=== PATIENT | male | born 1955 | race Caucasian/White ===

== ENCOUNTER 2020-10-10 15:23 | Inpatient (IN) ==
[2020-10-10] MEDS ORDERED: dilTIAZem HCl 5 MG/ML 5 ML VIAL IV ONE ×2 (15:45→15:48)
[2020-10-10] MEDS ORDERED: STAT IV Infusion **Titration per Protocol STA (15:47)
[2020-10-10] MEDS: dilTIAZem HCL 125 MG in DEXTROSE 5% 100 ML IV SCH (16:04)
[2020-10-10 16:09] LABS: Basophils # (auto) 0.02 K/uL (0-0.2); Basophils % (auto) 0.2 %; Eosinophils # (auto) 0.07 K/uL (0-0.5); Eosinophils % (auto) 0.8 %; Hematocrit (blood only) 40.7 % (42-52); Hemoglobin 13.1 g/dL (14.0-18.0); Immature Granulocytes # (auto) 0.02 K/uL (0.00-0.02); Immature Granulocytes % (auto) 0.2 %; Lymphocytes # (auto) 1.85 K/uL (1.2-3.4); Lymphocytes % (auto) 21.7 %; Mean Corpuscular Hemoglobin 30.3 pg (25-34); Mean Corpuscular Hgb Conc 32.2 g/dL (32-36); Monocytes % (auto) 9.4 %; Neutrophils # (auto) 5.77 K/uL (1.4-6.5); Neutrophils % (auto) 67.7 %; Platelet Count 198 K/uL (130-400); RDW Coefficient of Variation 16.4 % (11.5-14.5); RDW Standard Deviation 56.9 fL (36.4-46.3); Red Blood Count 4.33 M/uL (4.7-6.1); White Blood Count 8.53 K/uL (4.8-10.8)
[2020-10-10 16:24] LABS: BUN Creatinine Ratio 11.2 (10-20); Blood Urea Nitrogen 13 mg/dl (7-18); Calcium 8.8 mg/dl (8.5-10.1); Carbon Dioxide 25 mmol/L (21-32); Chloride 112 mmol/L (98-107); Est GFR (African American) 79.7 ml/min; Est GFR (Non-African American) 68.8 ml/min; Glucose 122 mg/dl (70-99); Lipase 168 U/L (73-393); Magnesium 2.1 mg/dl (1.8-2.4); Potassium 4.1 mmol/L (3.5-5.1); Sodium 144 mmol/L (136-145)
[2020-10-10 16:30] LABS: NT Pro B Type Natriuretic Pept 2429 pg/ml (0-900); Troponin I < 0.015 ng/ml (0-0.045)
[2020-10-10 16:34] LABS: INR 1.1 (0.9-1.1); Partial Thromboplastin Ratio 1.1; Prothrombin Time 10.8 Seconds (9.0-12.0)
--- NOTE | 2020-10-10 16:35 | XRay Report ---
XR chest 1V portable CLINICAL HISTORY: Chest Pain COMPARISON STUDY: No previous studies for comparison. FINDINGS: Old left clavicular fracture is noted. There is an old right-sided fracture. Moderate eleva tion of the right hemidiaphragm is present. Note is made of cardiomegaly. There is pulmonary vascular congestion. No pneumothorax or pleural effusion is identified. There is apparent right infrahilar op acity. IMPRESSION: 1. Cardiomegaly with pulmonary vascular congestion. 2. Moderate elevation of the right hemidiaphragm. Right basilar opacity which favors atelectasis alth ough consolidation could appear similar. Radiographic follow up is recommended. ACT 112: Negative or not required by law. Electronically signed by: Michelet Hinton M.D. 10/10/2020 4:33 PM
--- NOTE | 2020-10-10 16:39 | Emergency Department Note ---
History of Present Illness General Chief Complaint: Arrhythmia/Palpitations Stated Complaint: REFERRED BY ALEXANDER LU HEARTBE[facility] Time Seen by Provider: 10/10/20 15:38 History of Present Illness Provider Complaint: + "heart racing" and + palpitations Onset (ago): 1 day(s) Duration: + Constant Maximum Pain Intensity: 0 Current Pain Intensity: 0 Context: + occurred during exertion (While mowing grass) Arrhythmia history: + atrial fibrillation and + on anti-coagulants (Patient states he is not sure if he is on blood thinner.) Associated symptoms: + shortness of breath (Chronic per patient); no chest pain, no syncope, no nausea, no vomiting, no diaphoresis and no cough HPI narrative: Patient vaccinated against COVID-19. Patient states he does not know any of his home medications but he is states that his family member could bring in the list of home medications tomorrow. Patient states he was recently discharged from the hospital at [place]. He states after he started getting palpitations while mowing his lawn he went to his doctor who told him not to go to [facility] instead to come to [facility]. Past Med/Surg History Medical History (Updated 10/10/20 @ 16:43 by Abe Montes) Afib HLD (hyperlipidemia) HTN (hypertension) LBBB (left bundle branch block) Morbid obesity No pertinent family history Noncompliance LIZA (obstructive sleep apnea) Pulmonary hypertension Surgical History (Updated 10/10/20 @ 16:32 by Abe Montes) No pertinent past surgical history Social History Smoking Status: Never smoker Feels Safe at Home: Yes Review of Systems A total of 10 systems reviewed and were otherwise negative Physical Exam Vital Signs: Vital Signs - 24 hr 10/10/20 15:26 10/10/20 15:40 10/10/20 16:07 Temperature 36.7 C Temperature Source Temporal Artery Sc an Pulse Rate 99 H 173 H 105 H Pulse Rate from Sp O2 Sensor Pulse Rhythm Regular Irregular Pulse Strength Normal Respiratory Rate 21 28 H 28 H Respiratory Effort / Characteristics Non-Labored Sponta neous Spontaneous Access ory Muscle Use Lab ored Short of Kelley th SOB on Exertion Respiratory Depth Normal Normal Respiratory Patter n Regular Tachypnea Blood Pressure 150/72 H 128/94 Blood Pressure Vianney n 98 105 Pulse Oximetry 92 93 95 Oxygen Delivery Me thod Nasal Cannula Nasal Cannula Nasal Cannula Oxygen Flow Rate 2 3 2 Sepsis Recent Feve r Within 48 Hours No Sepsis New/Unexpla ined Change in Men jae Status No Sepsis Action Take n by Nursing No Action Required 10/10/20 16:15 Temperature Temperature Source Pulse Rate 109 H Pulse Rate from Sp O2 Sensor 101 H Pulse Rhythm Pulse Strength Respiratory Rate 22 Respiratory Effort / Characteristics Respiratory Depth Respiratory Patter n Blood Pressure 108/83 Blood Pressure Vianney n 91 Pulse Oximetry 95 Oxygen Delivery Me thod Oxygen Flow Rate Sepsis Recent Feve r Within 48 Hours Sepsis New/Unexpla ined Change in Men jae Status Sepsis Action Take n by Nursing Physical Exam: Physical Exam GENERAL: He is oriented to person, place, and time. He appears well-developed and well-nourished. He does not appear distressed. HENT: Exam performed. - Head: Normocephalic and atraumatic. - Right Ear: External ear normal. No mastoid tenderness. - Left Ear: External ear normal. No mastoid tenderness. - Mouth/Throat: The oropharynx is clear and moist. No trismus in the jaw. No dental abscesses or uvula swelling. No oropharyngeal exudate or tonsillar abscesses. EYES: Conjunctivae and EOM are normal. Pupils are equal, round, and reactive to light. Right eye exhibits no discharge. Left eye exhibits no discharge. No scleral icterus. NECK: Normal range of motion. Neck supple. No JVD present. No spinous process tenderness present. No carotid bruit present. No rigidity. No tracheal deviation and normal range of motion present. No Brudzinski's sign and no Kernig's sign noted. CV: Tachycardic rate, irregular rhythm, normal heart sounds and intact distal pulses. There is 2+ pitting edema of bilateral lower extremities. Palpable radial pulses bue. PULM/CHEST: Effort normal and breath sounds normal. No respiratory distress. No stridor. He has no wheezes. He has no rales. - Chest Wall: He exhibits no tenderness. ABD: The abdomen is soft and he is morbidly obese. Bowel sounds are normal. He has no distension. No mass is present. There is no tenderness. There is no rebound, no guarding, no Reilly's sign and no tenderness at McBurney's point. Rovsig negative. MUSC/SKEL: Normal range of motion. There is There is 2+ pitting edema of bilateral lower extremities. NEURO: He is alert and oriented to person, place, and time. He has normal strength. No cranial nerve deficit or sensory deficit. Coordination and gait normal. GCS eye subscore is 4. GCS verbal subscore is 5. GCS motor subscore is 6. Cerebellar tests wnl. SKIN: Skin is warm and dry. He is not diaphoretic. PSYCH: He has a normal mood and affect. Behavior is normal. Judgment and thought content normal. Course Course 1538: The patient was evaluated in room C11. A complete history and physical exam was performed Cardiac monitoring: An order was placed for continuous cardiac monitoring. The monitor shows a rate of 140-160 with atrial fibrillation rhythm Large-bore IV access was obtained and Cardizem 20 mg was pushed on the patient which improved the patient's ventricular rate. Patient be started on Cardizem drip. Patient states he does not know any of his home medications but states his family member could bring the medications tomorrow. He states he thinks he is on a blood thinner. Patient states his traffic counter the [facility] told him to come to this hospital. He states he was just released from [facility]. 1600: Vital signs stable on Cardizem drip. Earlene catering sales manager was able to access the [facility] record system via [employer]. Patient was admitted to the [facility] from September 30, 2020 to October 05, 2020. He is discharged with a diagnosis of acute on chronic heart failure and A. fib RVR. His torsemide was increased to 40 mg daily and his metoprolol was increased to 100 mg p.o. twice daily. He is on Eliquis. Patient was cardioverted to normal sinus rhythm September 09, 2020. His creatinine at baseline is 1.0. He wears 2 L of oxygen at all time. Patient is supposed to follow-up with for pacemaker and ablation. He is scheduled for biventricular placement placement on October 12, 2020, 2 days from now. Patient is also on amiodarone outpatient. Will cancel CTA at this time given the patient is on Eliquis. We will plan to admit to the hospital given his A. fib RVR and evaluation by cardiology. 1655: Vital signs stable on Cardizem drip. Labs show an elevated proBNP. Chest x-ray shows that the patient is fluid overloaded. Discussed the case with Irene Shetty PA-C who states to admit to Dr. Sosa. She states to start the patient on Lasix 40 mg IV push and she will evaluate the patient. Administered Medications Diltiazem HCl 125 mg/ Dextrose 125 mls @ 5 mls/hr IV .Q24H [facility]; Protocol Stop: 11/09/20 15:59 Last Admin: 10/10/20 16:04 Dose: 5 mg/hr, 5 mls/hr Documented by: [id number] Cosigned by: [id number] Discontinued Medications Diltiazem HCl (Diltiazem Hcl 5 Mg/Ml 5 Ml Vial) Confirm Administered Dose 25 mg IV .STK-MED ONE Stop: 10/10/20 15:46 Last Admin: 10/10/20 15:52 Dose: 20 mg Documented by: [id number] Cosigned by: [id number] Diltiazem HCl (Diltiazem Hcl 5 Mg/Ml 5 Ml Vial) Confirm Administered Dose 25 mg IV .STK-MED ONE Stop: 10/10/20 15:49 Last Admin: 10/10/20 16:46 Dose: Not Given Documented by: [id number] Medical Decision Making Laboratory Data Result diagrams: 10/10/20 15:53 10/10/20 15:53 Lab Results 10/10/20 10/10/20 10/10/20 Range/Units 15:53 15:53 15:53 WBC 8.53 (4.8-10.8) K/uL RBC 4.33 L (4.7-6.1) M/uL Hgb 13.1 L (14.0-18.0) g/dL Hct 40.7 L (42-52) % MCV 94.0 (80-100) fL MCH 30.3 (25-34) pg MCHC 32.2 (32-36) g/dL RDW Std Deviation 56.9 H (36.4-46.3) fL RDW Coeff of Martin 16.4 H (11.5-14.5) % Plt Count 198 (130-400) K/uL MPV 11.0 H (7.4-10.4) fL Immature Gran % (Auto) 0.2 % Neut % (Auto) 67.7 % Lymph % (Auto) 21.7 % [place] % (Auto) 9.4 % Eos % (Auto) 0.8 % Baso % (Auto) 0.2 % Neut # (Auto) 5.77 (1.4-6.5) K/uL Lymph # (Auto) 1.85 (1.2-3.4) K/uL [place] # (Auto) 0.80 H (0.11-0.59) K/uL Eos # (Auto) 0.07 (0-0.5) K/uL Baso # (Auto) 0.02 (0-0.2) K/uL Immature Gran # (Auto) 0.02 (0.00-0.02) K/uL PT 10.8 (9.0-12.0) Seconds INR 1.1 (0.9-1.1) APTT 29.0 (21.0-31.0) Seconds PTT Ratio 1.1 Sodium 144 (136-145) mmol/L Potassium 4.1 (3.5-5.1) mmol/L Chloride 112 H (98-107) mmol/L Carbon Dioxide 25 (21-32) mmol/L Anion Gap 7.0 (3-11) BUN 13 (7-18) mg/dl Creatinine 1.13 (0.6-1.4) mg/dl Est Cr Clr Drug Dosing Not Reportable Est GFR ( Amer) 79.7 ml/min Est GFR (Non-Af Amer) 68.8 ml/min BUN/Creatinine Ratio 11.2 (10-20) Glucose 122 H (70-99) mg/dl Calcium 8.8 (8.5-10.1) mg/dl Magnesium 2.1 (1.8-2.4) mg/dl Troponin I < 0.015 (0-0.045) ng/ml NT-Pro-B Natriuret Pep 2429 H (0-900) pg/ml Lipase 168 (73-393) U/L COVID-19 Eval Order 10/10/20 Range/Units 15:53 WBC (4.8-10.8) K/uL RBC (4.7-6.1) M/uL Hgb (14.0-18.0) g/dL Hct (42-52) % MCV (80-100) fL MCH (25-34) pg MCHC (32-36) g/dL RDW Std Deviation (36.4-46.3) fL RDW Coeff of Martin (11.5-14.5) % Plt Count (130-400) K/uL MPV (7.4-10.4) fL Immature Gran % (Auto) % Neut % (Auto) % Lymph % (Auto) % [place] % (Auto) % Eos % (Auto) % Baso % (Auto) % Neut # (Auto) (1.4-6.5) K/uL Lymph # (Auto) (1.2-3.4) K/uL [place] # (Auto) (0.11-0.59) K/uL Eos # (Auto) (0-0.5) K/uL Baso # (Auto) (0-0.2) K/uL Immature Gran # (Auto) (0.00-0.02) K/uL PT (9.0-12.0) Seconds INR (0.9-1.1) APTT (21.0-31.0) Seconds PTT Ratio Sodium (136-145) mmol/L Potassium (3.5-5.1) mmol/L Chloride (98-107) mmol/L Carbon Dioxide (21-32) mmol/L Anion Gap (3-11) BUN (7-18) mg/dl Creatinine (0.6-1.4) mg/dl Est Cr Clr Drug Dosing Est GFR ( Amer) ml/min Est GFR (Non-Af Amer) ml/min BUN/Creatinine Ratio (10-20) Glucose (70-99) mg/dl Calcium (8.5-10.1) mg/dl Magnesium (1.8-2.4) mg/dl Troponin I (0-0.045) ng/ml NT-Pro-B Natriuret Pep (0-900) pg/ml Lipase (73-393) U/L COVID-19 Eval Order Covid19 at [facility] Imaging Data Radiologist's Impression: Chest X-Ray 10/10/20 15:47 XR chest 1V portable CLINICAL HISTORY: Chest Pain COMPARISON STUDY: No previous studies for comparison. FINDINGS: Old left clavicular fracture is noted. There is an old right-sided fracture. Moderate elevation of the right hemidiaphragm is present. Note is made of cardiomegaly. There is pulmonary vascular congestion. No pneumothorax or pleural effusion is identified. There is apparent right infrahilar opacity. IMPRESSION: 1. Cardiomegaly with pulmonary vascular congestion. 2. Moderate elevation of the right hemidiaphragm. Right basilar opacity which favors atelectasis although consolidation could appear similar. Radiographic follow up is recommended. ACT 112: Negative or not required by law. Electronically signed by: Michelet Hinton M.D. 10/10/2020 4:33 PM ECG Data Additional Comments: EKG #1 at 1540: Atrial fibrillation with a rate of 141. QRS 146 QTC 533. Sgarnosa negative. Left bundle branch block present. EKG #2 at 1551 status post Cardizem 20 mg IV bolus: Atrial fibrillation with a rate of 117. QRS 162 QTC 532. Left bundle branch block present. Sgarnosa [facility] Narrative 1538: The patient was evaluated in room C11. A complete history and physical exam was performed Cardiac monitoring: An order was placed for continuous cardiac monitoring. The monitor shows a rate of 140-160 with atrial fibrillation rhythm Large-bore IV access was obtained and Cardizem 20 mg was pushed on the patient which improved the patient's ventricular rate. Patient be started on Cardizem drip. Patient states he does not know any of his home medications but states his family member could bring the medications tomorrow. He states he thinks he is on a blood thinner. Patient states his traffic counter the [facility] told him to come to this hospital. He states he was just released from [facility]. 1600: Vital signs stable on Cardizem drip. Earlene catering sales manager was able to access the [facility] record system via [employer]. Patient was admitted to the hospital at [facility] from September 30, 2020 to October 05, 2020. He is discharged with a diagnosis of acute on chronic heart failure and A. fib RVR. His torsemide was increased to 40 mg daily and his metoprolol was increased to 100 mg p.o. twice daily. He is on Eliquis. Patient was cardioverted to normal sinus rhythm September 09, 2020. His creatinine at baseline is 1.0. He wears 2 L of oxygen at all time. Patient is supposed to follow-up with for pacemaker and ablation. He is scheduled for biventricular placement placement on October 12, 2020, 2 days from now. Patient is also on amiodarone outpatient. Will cancel CTA at this time given the patient is on Eliquis. We will plan to admit to the hospital given his A. fib RVR and evaluation by cardiology. 1655: Vital signs stable on Cardizem drip. Labs show an elevated proBNP. Chest x-ray shows that the patient is fluid overloaded. Discussed the case with Irene Shetty PA-C who states to admit to Dr. Sosa. She states to start the patient on Lasix 40 mg IV push and she will evaluate the patient. Impression & Plan Atrial fibrillation with RVR, CHF (congestive heart failure) Critical Care Time Critical Care Time: Yes Total Critical Care Time: 77 I have personally spent greater than 77 minutes of critical care time in the direct management of this patient. This includes bedside care, interpretation of diagnostic studies, and testing, discussion with consultants, patient, and family members, and other required patient management activities. This 77 minutes is in excess of all separately billable procedures. Discharge Plan Visit Data Chief Complaint: Arrhythmia/Palpitations Stated Complaint: REFERRED BY ALEXANDER LU HEARTBEAT ED Provider: Abe Montes Discharge Problem: Atrial fibrillation with RVR, CHF (congestive heart failure) Patient Disposition: Admitted As Inpatient Forms Stand Alone Forms: [facility] Referrals Referrals: PCP,NO [Primary Care Provider] - Discharge Problem: CHF (congestive heart failure) Qualifiers: Heart failure type: unspecified Heart failure chronicity: unspecified Qualified Code(s): I50.9 - Heart failure, unspecified
[2020-10-10] MEDS ORDERED: FUROSEMIDE 40 MG/4 ML VIAL IV STA (16:54)
--- NOTE | 2020-10-10 17:00 | History & Physical Report ---
Date of Service October 10, 2020 Assessment & Plan (1) Atrial fibrillation with RVR: This is a 64-year-old male with PMH of CHF, atrial fibrillation on Eliquis, type 2 diabetes, chronic respiratory failure with hypoxia and hypercapnia on 2 L nasal cannula oxygen, asthma, sleep apnea, hypertension and other medical problems listed below who was sent over from [facility] cardiology for A. fib with RVR and decompensated heart failure. Multiple admissions at [facility] for A. fib with RVR Home regimen includes amiodarone and recently increased Toprol 100 mg twice daily Due for AV jeannie ablation with biventricular ICD implant later this week with Dr. Stewart Directed to come to [facility] for admission for improved rate control, diuresis prior to procedure HR initially 170s, now 96 Diltiazem bolus and drip initiated in ED- continued on the floor Continue to monitor closely Cardiology consulted (2) Acute decompensated heart failure: Recurrent admissions for decompensated heart failure Most recent TTE from 09/13/2020 with EF of 30 with diffuse hypokinesis. Septal motion is abnormal consistent with LBBB. Moderate pulmonary hypertension is present Torsemide increased during previous hospital admission to 40 mg daily - holding currently Given 40mg IV Lasix in ED, valdes catheter placed. Strict I&Os Plan for Lasix 40mg BID17 Cardiology consulted (3) HTN (hypertension): Continue Toprol, lisinopril with hold parameters (4) HLD (hyperlipidemia): Continue statin (5) LIZA (obstructive sleep apnea): Bipap HS (6) LBBB (left bundle branch block): Chronic (7) Noncompliance: History of non-compliance with medications DVT Ppx: Eliquis Code status: FULL PCP: Raghu Dispo: Admitted to PCU. Patient seen in collaboration with Dr. Sosa. Please see addendum. (8) Acute systolic heart failure: History of Present Illness Chief Complaint: Sent from [facility] cardiology Primary Care Provider: NO PCP This is a 64-year-old male with PMH of CHF, atrial fibrillation on Eliquis, chronic respiratory failure with hypoxia and hypercapnia on 2 L nasal cannula oxygen, asthma, sleep apnea, hypertension and other medical problems listed below who was sent over from [facility] cardiology for A. fib with RVR and decompensated heart failure. Patient was recently admitted at [facility] from 09/30-10/05 for acute on chronic heart failure and A. fib with RVR. Had torsemide increased to 40 mg daily and Toprol increased to 100 mg twice daily. Was cardioverted to normal sinus rhythm on September 09. Is due for AV jeannie ablation with biventricular ICD implant later this week with Dr. Stewart. In clinic follow-up today, patient noted to be in A. fib with RVR as well as a 10 pound weight gain since last seen. Had been mowing the lawn earlier that day and noticed some palpitations. Otherwise feels that he is at his baseline. Denies chest pain, SOB, orthopnea. States he has been taking medications as prescribed but is unable to name them. Fills his medication box with help of sister and "takes what ever is in there". History of noncompliance. Denies any fever, chills, headache, lightheadedness, nausea, vomiting, abdominal pain, dysuria, diarrhea or constipation. Allergies Allergy/AdvReac Type Severity Reaction Status Date / Time codeine Allergy Hives Unverified 10/10/20 17:00 TEA Allergy Anaphylaxis Uncoded 10/10/20 17:01 TIDE LAUNDRY DETERGENT Allergy Rash Uncoded 10/10/20 17:02 Home Medications Medication Instructions Recorded Confirmed Type albuterol sulfate 1 inh INHALATION Q6H PRN 10/10/20 10/10/20 History amiodarone 200 mg PO DAILY 10/10/20 10/10/20 History apixaban [Eliquis] 5 mg PO BID 10/10/20 10/10/20 History aspirin 81 mg PO DAILY 10/10/20 10/10/20 History atorvastatin 40 mg PO DAILY 10/10/20 10/10/20 History cyanocobalamin (vitamin B-12) 500 mcg PO DAILY 10/10/20 10/10/20 History famotidine 40 mg PO DAILY 10/10/20 10/10/20 History lisinopril 2.5 mg PO DAILY 10/10/20 10/10/20 History metoprolol succinate 100 mg PO BID 10/10/20 10/10/20 History omeprazole 20 mg PO BID 10/10/20 10/10/20 History potassium chloride [Klor-Con] 20 meq PO DAILY 10/10/20 10/10/20 History torsemide 40 mg PO DAILY 10/10/20 10/10/20 History umeclidinium [Incruse Ellipta] 1 inh INHALATION DAILY 10/10/20 10/10/20 History Past Med/Surg History Medical History (Updated 10/10/20 @ 23:34 by Mayra Sosa, DO) Afib Diabetes mellitus, type II HLD (hyperlipidemia) HTN (hypertension) LBBB (left bundle branch block) Morbid obesity No pertinent family history Noncompliance LIZA (obstructive sleep apnea) Pulmonary hypertension Surgical History No pertinent past surgical history Family History Other Hypertension Social History Smoking Status: Never smoker Do You Dip or Chew Tobacco: Yes; Hx Alcohol Use: Yes Hx Substance Use: No Preferred Language: Liberian Communication Ability: Effective Beliefs That Will Affect Care: None Current Living Situation: Family Other Information That Helps Us Care for You: No Feels Safe at Home: Yes Safety Concerns: Feels Safe At This Time Assistive Devices: Oxygen - Continuous Review of Systems Review of Systems: At least ten systems reviewed and negative except as noted in the HPI. Physical Exam Physical Exam: General Appearance: WD/WN, vitals as above, NAD, sitting up in bed, conversational dyspnea Head: normocephalic, atraumatic Eyes: normal inspection, PERRL, conjunctivae normal, anicteric sclerae ENT: external ear and nose normal, oropharynx normal Neck: normal visual inspection, trachea midline, no thyromegaly Respiratory: increased respiratory effort, lungs clear to auscultation, no wheeze, rales, rhonchi. No accessory muscle use Cardiovascular: irregular rate & rhythm, no murmur appreciated, normal peripheral pulses, 2+ BLE edema. Vessels: + JVD Chest: normal inspection of chest Abdomen/GI: normal bowel sounds, soft, nontender, no hepatosplenomegaly Extremities/Musculoskeletal: no cyanosis or clubbing, extremities motor strength 5/5 Neurologic: PERRL, EOMI, accommodation nl, no face palsy, no dysarthria, CN's II-XI intact bilaterally and moves all extremities Psychiatric: A+Ox3, euthymic affect Skin: no rashes, normal color, warm/dry Results & Data Results & Data ([facility]) Vital Signs (Past 12 Hours) Vital Signs Temp Pulse Resp BP Pulse Ox 10/10/20 16:15 109 H 22 108/83 95 10/10/20 16:07 105 H 28 H 128/94 95 10/10/20 15:40 173 H 28 H 93 10/10/20 15:26 36.7 C 99 H 21 150/72 H 92 Laboratory Results Short CBC 10/10/20 Range/Units 15:53 WBC 8.53 (4.8-10.8) K/uL Hgb 13.1 L (14.0-18.0) g/dL Hct 40.7 L (42-52) % Plt Count 198 (130-400) K/uL BMP 10/10/20 15:53 Sodium 144 Potassium 4.1 Chloride 112 H Carbon Dioxide 25 BUN 13 Creatinine 1.13 Glucose 122 H Calcium 8.8 Cardiac Enzymes 10/10/20 Range/Units 15:53 Troponin I < 0.015 (0-0.045) ng/ml Diagnostic Findings Chest X-Ray 10/10/20 15:47 XR chest 1V portable CLINICAL HISTORY: Chest Pain COMPARISON STUDY: No previous studies for comparison. FINDINGS: Old left clavicular fracture is noted. There is an old right-sided fracture. Moderate elevation of the right hemidiaphragm is present. Note is made of cardiomegaly. There is pulmonary vascular congestion. No pneumothorax or pleural effusion is identified. There is apparent right infrahilar opacity. IMPRESSION: 1. Cardiomegaly with pulmonary vascular congestion. 2. Moderate elevation of the right hemidiaphragm. Right basilar opacity which favors atelectasis although consolidation could appear similar. Radiographic follow up is recommended. ACT 112: Negative or not required by law. Electronically signed by: Michelet Hinton M.D. 10/10/2020 4:33 PM ECG Rhythm: atrial fibrillation Findings: + LBBB Supervising Physician Co-Signing Physician Notes I have seen and examined the patient and have discussed the case with the provider above. I agree with the assessment and plan as stated. 64 yo M with recent hospitalization for heart failure presents with fluid overload and atrial fibrillation with rapid ventricular response. He reports mowing his yard today for approximately 2 to 3 hours with a push mower. He has 2 acres of land. He appears somewhat dehydrated but is not able to answer if he feels any weight gain. Denies shortness of breath or chest pain. Pulmonary vascular congestion noted on chest x-ray. Weight gain noted in clinic. Continue with plan as above including diuresis with Lasix and monitoring of strict I's and O's, daily standing weights and low-salt diet. Cardiology consulted for further management. Holding Toprol while patient is on diltiazem and continuing home amiodarone and digoxin. Physical exam reveals an morbidly obese 64-year-old man in no acute distress who has no conversational dyspnea or increased work of breathing. He is mentating clearly. Heart exam reveals irregular rhythm with a regular rate. S1 and S2 are heard without evidence of murmurs. No zehra pitting edema on extremities. Abdomen protuberant and it is unclear if swelling is present. Abdomen is soft and nondistended and no guarding is present. So far he is put out over 1 L in response to 40 mg of Lasix IV this evening. DO Ian
[2020-10-10] MEDS ORDERED: ACETAMINOPHEN 325 MG TAB PO PRN (19:53)
[2020-10-10] MEDS ORDERED: ONDANSETRON INJ 2 MG/ML 2 ML VIAL IV PRN (19:53)
[2020-10-10] MEDS ORDERED: POLYETHYLENE (MIRALAX) 17 GM PACK PO PRN (19:53)
[2020-10-10] MEDS ORDERED: PNEUMOCOCCAL POLYSACCHARIDES 25 MCG/0.5 ML VIAL/SYR IM ONE (20:08)
[2020-10-10] MEDS ORDERED: ALBUTEROL HFA 8 GM INHALER INH PRN (22:17)
[2020-10-10] MEDS: APIXABAN 5 MG TABLET PO SCH (23:32)
[2020-10-11 07:07] LABS: Hematocrit (blood only) 40.3 % (42-52); Hemoglobin 12.6 g/dL (14.0-18.0); Mean Corpuscular Hemoglobin 29.8 pg (25-34); Mean Corpuscular Hgb Conc 31.3 g/dL (32-36); Mean Corpuscular Volume 95.3 fL (80-100); Mean Platelet Volume 10.9 fL (7.4-10.4); Platelet Count 184 K/uL (130-400); RDW Coefficient of Variation 16.6 % (11.5-14.5); Red Blood Count 4.23 M/uL (4.7-6.1); White Blood Count 6.44 K/uL (4.8-10.8)
[2020-10-11 07:45] LABS: BUN Creatinine Ratio 11.2 (10-20); Calcium 8.6 mg/dl (8.5-10.1); Creatinine Clr Calc Pharmacy 114.1 ml/min; Est GFR (African American) 80.6 ml/min; Est GFR (Non-African American) 69.5 ml/min; Potassium 3.7 mmol/L (3.5-5.1)
[2020-10-11] MEDS: PANTOprazole 40 MG TAB PO SCH ×2 (08:37→20:48)
[2020-10-11] MEDS: ATORVASTATIN 40 MG TAB PO SCH (08:37)
[2020-10-11] MEDS: lisinopril 2.5 MG TAB PO SCH (08:37)
[2020-10-11] MEDS: AMIODARONE 200 MG TAB PO SCH (08:37)
[2020-10-11] MEDS: FAMOTIDINE 40 MG TABLET PO SCH (08:37)
[2020-10-11] MEDS: CYANOCOBALAMIN 500 MCG TABLET (VITAMIN B-12) PO SCH (08:37)
[2020-10-11] MEDS: ASPIRIN 81 MG ECTAB PO SCH (08:37)
[2020-10-11] MEDS: POTASSIUM CHLORIDE PWD 20 MEQ PACK PO SCH (08:38)
[2020-10-11] MEDS: APIXABAN 5 MG TABLET PO SCH (08:38)
[2020-10-11] MEDS: UMECLIDINIUM BROMIDE 62.5MCG/BLISTER 7 PUFFS/INHALER INH SCH (08:38)
[2020-10-11] MEDS: FUROSEMIDE 40 MG in SYRINGE 0 ML IV SCH ×2 (08:38→17:19)
--- NOTE | 2020-10-11 08:45 | Cardiology Consultation ---
Date of Consultation October 11, 2020 Assessment & Plan (1) Atrial fibrillation with RVR: (2) Acute decompensated heart failure: (3) LBBB (left bundle branch block): The patient is resting comfortably. He had a good diuresis overnight. His Eliquis has been stopped in anticipation of his upcoming procedures. Otherwise he is doing well. History of Present Illness Attending Physician: Andres Hawkins MD History of Present Illness This is a 64-year-old male patient with a history as outlined below. He is scheduled to have an ablation and pacemaker insertion later this week. He was admitted with volume overload and rapid atrial fibrillation. He will be diuresed during this admission and have better control of his atrial fibrillation. He has no current complaints. Past medical history: 1. Persistent atrial fibrillation with a rapid ventricular response failing amiodarone for rhythm management. Anticoagulated with Eliquis 2. 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 Status post cardioversion September 15, 2020 restore normal sinus rhythm but back in atrial fibrillation several days later 3. Chronic left bundle-branch block 4. Multiple recent admissions to [facility] for decompensated congestive systolic congestive heart and recurrent atrial fibrillation with rapid ventricular response. 5. Longstanding history of noncompliance 6. Morbid obesity 7. Obstructive sleep apnea with CPAP noncompliance 8. Pulmonary hypertension 9. Dyslipidemia Allergies Allergy/AdvReac Type Severity Reaction Status Date / Time codeine Allergy Hives Unverified 10/10/20 17:00 TEA Allergy Anaphylaxis Uncoded 10/10/20 17:01 TIDE LAUNDRY DETERGENT Allergy Rash Uncoded 10/10/20 17:02 Home Medications Medication Instructions Recorded Confirmed Type albuterol sulfate 1 inh INHALATION Q6H PRN 10/10/20 10/10/20 History amiodarone 200 mg PO DAILY 10/10/20 10/10/20 History apixaban [Eliquis] 5 mg PO BID 10/10/20 10/10/20 History aspirin 81 mg PO DAILY 10/10/20 10/10/20 History atorvastatin 40 mg PO DAILY 10/10/20 10/10/20 History cyanocobalamin (vitamin B-12) 500 mcg PO DAILY 10/10/20 10/10/20 History famotidine 40 mg PO DAILY 10/10/20 10/10/20 History lisinopril 2.5 mg PO DAILY 10/10/20 10/10/20 History metoprolol succinate 100 mg PO BID 10/10/20 10/10/20 History omeprazole 20 mg PO BID 10/10/20 10/10/20 History potassium chloride [Klor-Con] 20 meq PO DAILY 10/10/20 10/10/20 History torsemide 40 mg PO DAILY 10/10/20 10/10/20 History umeclidinium [Incruse Ellipta] 1 inh INHALATION DAILY 10/10/20 10/10/20 History Patient History Medical History Afib Diabetes mellitus, type II HLD (hyperlipidemia) HTN (hypertension) LBBB (left bundle branch block) Morbid obesity No pertinent family history Noncompliance LIZA (obstructive sleep apnea) Pulmonary hypertension Surgical History No pertinent past surgical history Family History Other Hypertension Social History Smoking Status: Never smoker Do You Dip or Chew Tobacco: Yes; Hx Alcohol Use: Yes Hx Substance Use: No Preferred Language: Kazakh Communication Ability: Effective Beliefs That Will Affect Care: None Current Living Situation: Family Other Information That Helps Us Care for You: No Feels Safe at Home: Yes Safety Concerns: Feels Safe At This Time Assistive Devices: CPAP Review of Systems Review of Systems: All systems reviewed & are unremarkable except as noted in HPI & below Nothing additional to add. Physical Exam Physical Exam: General: no acute distress and stated age Head: normocephalic, no masses, lesions, tenderness or abnormalities Eyes: conjunctiva are pink and non-injected, sclera clear Neck: supple, no adenopathy, no bruits, normal jugular venous pulse, no hepatojugular reflux Chest: normal shape and normal respiratory effort Lungs: clear to auscultation and percussion Cardiac Exam: - irregular rate & rhythm, no murmurs gallops or rubs - normal S1, normal S2 Pulses: 2(+) throughout Abdomen: abdomen soft, non-tender, no abnormal masses and no hepatosplenomegaly Musculoskeletal: no gait disturbance, no joint inflammation, no deforming arthritis Extremities: no edema and no cyanosis Neuro: grossly normal exam Results & Data ([facility]) Vital Signs (Past 12 Hours) Vital Signs Temp Pulse Pulse Resp BP Pulse Ox 10/11/20 08:12 36.5 C 112 H 18 121/75 90 10/11/20 05:00 36.9 C 93 H 18 121/72 10/11/20 03:30 85 12 93 10/11/20 00:48 101 H 10/10/20 23:28 36.7 C 84 18 116/63 95 10/10/20 23:08 92 H 21 94 Laboratory Results Laboratory Results - last 24 hr 10/10/20 10/10/20 10/10/20 15:53 15:53 15:53 WBC 8.53 RBC 4.33 L Hgb 13.1 L POC Hgb Hct 40.7 L POC Hct MCV 94.0 MCH 30.3 MCHC 32.2 RDW Std Deviation 56.9 H RDW Coeff of Martin 16.4 H Plt Count 198 MPV 11.0 H Immature Gran % (Auto) 0.2 Neut % (Auto) 67.7 Lymph % (Auto) 21.7 Fountain % (Auto) 9.4 Eos % (Auto) 0.8 Baso % (Auto) 0.2 Neut # (Auto) 5.77 Lymph # (Auto) 1.85 Fountain # (Auto) 0.80 H Eos # (Auto) 0.07 Baso # (Auto) 0.02 Immature Gran # (Auto) 0.02 PT 10.8 INR 1.1 APTT 29.0 PTT Ratio 1.1 POC Sodium Sodium 144 POC Potassium Potassium 4.1 POC Chloride Chloride 112 H Carbon Dioxide 25 POC Total CO2 Anion Gap 7.0 POC Anion Gap POC BUN BUN 13 Creatinine 1.13 POC Creatinine Est Cr Clr Drug Dosing Not Reportable Est GFR ( Amer) 79.7 Est GFR (Non-Af Amer) 68.8 BUN/Creatinine Ratio 11.2 Glucose 122 H POC Glucose (other) Calcium 8.8 POC Ioniz Calcium Shreya Magnesium 2.1 Troponin I < 0.015 NT-Pro-B Natriuret Pep 2429 H Lipase 168 COVID-19 Eval Order SARS-CoV-2 (PCR) Hepatitis C Ab Screen 10/10/20 10/10/20 10/10/20 15:53 15:53 15:53 WBC RBC Hgb POC Hgb Hct POC Hct MCV MCH MCHC RDW Std Deviation RDW Coeff of Martin Plt Count MPV Immature Gran % (Auto) Neut % (Auto) Lymph % (Auto) Fountain % (Auto) Eos % (Auto) Baso % (Auto) Neut # (Auto) Lymph # (Auto) Fountain # (Auto) Eos # (Auto) Baso # (Auto) Immature Gran # (Auto) PT INR APTT PTT Ratio POC Sodium Sodium POC Potassium Potassium POC Chloride Chloride Carbon Dioxide POC Total CO2 Anion Gap POC Anion Gap POC BUN BUN Creatinine POC Creatinine Est Cr Clr Drug Dosing Est GFR ( Amer) Est GFR (Non-Af Amer) BUN/Creatinine Ratio Glucose POC Glucose (other) Calcium POC Ioniz Calcium Shreya Magnesium Troponin I NT-Pro-B Natriuret Pep Lipase COVID-19 Eval Order Covid19 at [facility] SARS-CoV-2 (PCR) NEGATIVE Hepatitis C Ab Screen Neg 10/10/20 10/11/20 10/11/20 16:02 06:48 06:48 WBC 6.44 RBC 4.23 L Hgb 12.6 L POC Hgb 13.6 L Hct 40.3 L POC Hct 40 L MCV 95.3 MCH 29.8 MCHC 31.3 L RDW Std Deviation 58.0 H RDW Coeff of Martin 16.6 H Plt Count 184 MPV 10.9 H Immature Gran % (Auto) Neut % (Auto) Lymph % (Auto) Fountain % (Auto) Eos % (Auto) Baso % (Auto) Neut # (Auto) Lymph # (Auto) Fountain # (Auto) Eos # (Auto) Baso # (Auto) Immature Gran # (Auto) PT INR APTT PTT Ratio POC Sodium 145 H Sodium 142 POC Potassium 4.1 Potassium 3.7 POC Chloride 106 Chloride 106 Carbon Dioxide 31 POC Total CO2 24 Anion Gap 5.0 POC Anion Gap 20.0 POC BUN 13 BUN 13 Creatinine 1.12 POC Creatinine 1.2 Est Cr Clr Drug Dosing 114.1 Est GFR ( Amer) 80.6 Est GFR (Non-Af Amer) 69.5 BUN/Creatinine Ratio 11.2 Glucose 106 H POC Glucose (other) 127 H Calcium 8.6 POC Ioniz Calcium Shreya 1.22 Magnesium Troponin I NT-Pro-B Natriuret Pep Lipase COVID-19 Eval Order SARS-CoV-2 (PCR) Hepatitis C Ab Screen Medications Administered Current Inpatient Medications Acetaminophen (Acetaminophen 325 Mg Tab) 650 mg PO Q4H PRN PRN Reason: Pain or Fever Stop: 11/09/20 19:52 Albuterol (Albuterol Hfa 8 Gm Inhaler) 1 puffs INH Q6R PRN PRN Reason: Shortness Of Breath Stop: 11/09/20 22:16 Amiodarone HCl (Amiodarone 200 Mg Tab) 200 mg PO DAILY [facility] Stop: 11/10/20 08:59 Last Admin: 10/11/20 08:37 Dose: 200 mg Documented by: Aspirin (Aspirin 81 Mg Ectab) 81 mg PO DAILY [facility] Stop: 11/10/20 08:59 Last Admin: 10/11/20 08:37 Dose: 81 mg Documented by: Atorvastatin Calcium (Atorvastatin 40 Mg Tab) 40 mg PO DAILY [facility] Stop: 11/10/20 08:59 Last Admin: 10/11/20 08:37 Dose: 40 mg Documented by: Cyanocobalamin (Cyanocobalamin 500 Mcg Tablet (Vitamin B-12)) 500 mcg PO DAILY [facility] Stop: 11/10/20 08:59 Last Admin: 10/11/20 08:37 Dose: 500 mcg Documented by: Famotidine (Famotidine 40 Mg Tablet) 40 mg PO DAILY [facility] Stop: 11/10/20 08:59 Last Admin: 10/11/20 08:37 Dose: 40 mg Documented by: Fluticasone/Vilanterol (Fluticasone/Vilanterol 200/25mcg 14 Puffs/Inhaler) 1 puffs INH DAILY [facility] Stop: 11/10/20 08:59 Last Admin: 10/11/20 10:06 Dose: 1 puffs Documented by: Diltiazem HCl 125 mg/ Dextrose 125 mls @ 5 mls/hr IV .Q24H [facility]; Protocol Stop: 11/09/20 15:59 Last Admin: 10/11/20 11:05 Dose: 10 mg/hr, 10 mls/hr Documented by: Furosemide 40 mg/ Syringe 4 mls @ 4 mls/min IV BID17 [facility] Stop: 11/10/20 08:59 Last Admin: 06/08/21 08:38 Dose: 4 mls/min Documented by: Lisinopril (Lisinopril 2.5 Mg Tab) 2.5 mg PO DAILY [facility] Stop: 11/10/20 08:59 Last Admin: 10/11/20 08:37 Dose: 2.5 mg Documented by: Metoprolol Succinate (Metoprolol Succ 50mg Ext Rel Tab) 100 mg PO BID [facility] Stop: 11/10/20 08:59 Ondansetron HCl (Ondansetron Inj 2 Mg/Ml 2 Ml Vial) 4 mg IV Q6H PRN PRN Reason: Nausea Stop: 11/09/20 19:52 Pantoprazole Sodium (Pantoprazole 40 Mg Tab) 40 mg PO BID [facility]; Protocol Stop: 11/10/20 08:59 Last Admin: 10/11/20 08:37 Dose: 40 mg Documented by: Polyethylene Glycol (Polyethylene (Miralax) 17 Gm Pack) 17 gm PO DAILY PRN PRN Reason: Constipation Stop: 11/09/20 19:52 Potassium Chloride (Potassium Chloride Pwd 20 Meq Pack) 20 meq PO DAILY [facility] Stop: 11/10/20 08:59 Last Admin: 10/11/20 08:38 Dose: 20 meq Documented by: Umeclidinium [place] (Umeclidinium [place] 62.5mcg/Blister 7 Puffs/Inhaler) 1 puffs INH DAILY [facility] Stop: 11/10/20 08:59 Last Admin: 10/11/20 08:38 Dose: 1 puffs Documented by:
[2020-10-11] MEDS ORDERED: DIGOXIN 0.125 MG TAB PO SCH (09:00)
[2020-10-11] MEDS ORDERED: METOPROLOL SUCC 50MG EXT REL TAB PO SCH (09:00)
[2020-10-11] MEDS: FLUTICASONE/VILANTEROL 200/25MCG 14 PUFFS/INHALER INH SCH (10:06)
[2020-10-11 10:19] LABS: iSTAT Potassium 4.1 mmol/L (3.3-5.0)
[2020-10-11 10:20] LABS: iSTAT Creatinine 1.2 mg/dl (0.6-1.3); iSTAT Hemoglobin 13.6 g/dl (14.0-18.0); iSTAT Ionized Calcium 1.22 mmol/l (1.12-1.32)
[2020-10-11] MEDS: dilTIAZem HCL 125 MG in DEXTROSE 5% 100 ML IV SCH (11:05)
--- NOTE | 2020-10-11 13:39 | Hospitalist Progress Note ---
Date of Service October 11, 2020 Assessment & Plan (1) Atrial fibrillation with RVR: This is a 64-year-old male with PMH of CHF, atrial fibrillation on Eliquis, type 2 diabetes, chronic respiratory failure with hypoxia and hypercapnia on 2 L nasal cannula oxygen, asthma, sleep apnea, hypertension and other medical problems listed below who was sent over from [facility] cardiology for A. fib with RVR and decompensated heart failure. Multiple admissions at [facility] for A. fib with RVR Home regimen includes amiodarone and recently increased Toprol 100 mg twice daily Due for AV jeannie ablation with biventricular ICD implant later this week with Dr. Stewart Directed to come to [facility] for admission for improved rate control, diuresis prior to procedure HR initially 170s, now 96 Diltiazem bolus and drip initiated in ED- continued on the floor Continue to monitor closely Cardiology consulted -appreciate input Remains medically stable with controlled heart rate around 90s (2) Acute decompensated heart failure: Recurrent admissions for decompensated heart failure Most recent TTE from 09/13/2020 with EF of 30 with diffuse hypokinesis. Septal motion is abnormal consistent with LBBB. Moderate pulmonary hypertension is present Torsemide increased during previous hospital admission to 40 mg daily - holding currently Given 40mg IV Lasix in ED, valdes catheter placed. Strict I&Os Plan for Lasix 40mg BID17 No symptoms of fluid overload We will continue current medications (3) HTN (hypertension): Continue Toprol, lisinopril with hold parameters Blood pressure is controlled (4) HLD (hyperlipidemia): Continue statin (5) LIZA (obstructive sleep apnea): Bipap HS (6) LBBB (left bundle branch block): Chronic (7) Noncompliance: History of non-compliance with medications DVT Ppx: Eliquis Code status: FULL PCP: Raghu Dispo: Admitted to PCU. . (8) Acute systolic heart failure: Admission and Anticipated Discharge Date Admission Date: October 10, 2020 Subjective 10/11/2020 The patient was seen and examined in telemetry unit He was transferred from [facility] artist consultant for possible ICD placement He has been stable denies any symptoms this morning Review of Systems Review of Systems: All systems reviewed and are unremarkable except as noted below Cardiovascular: no chest pain and no palpitations Physical Exam Physical Exam: Lying in bed comfortably Constitutional: well developed, well nourished and + obese; not ill appearing Eyes: PERRL, conjunctivae normal, anicteric sclerae ENMT: external ear and nose normal, oropharynx normal Neck: trachea midline, no thyromegaly Respiratory: no respiratory distress Auscultation: lungs clear to auscultation bilaterally and + diminished lung sounds Cardiovascular: Rate/Rhythm: regular rate and regular rhythm Heart Sounds: no murmur Extremities: + edema (1-2+ edema bilaterally and seems to be chronic) Gastrointestinal (Abdomen): Inspection/Auscultation: + abdomen distended and normal bowel sounds Percussion/Palpation: abdomen soft; abdomen nontender Musculoskeletal: No acute arthritis in any joint Neurologic: Alert, awake and oriented x3 Lymphatic: no cervical or axillary lymphadenopathy Results & Data Results & Data ([facility]) Vital Signs (Past 12 Hours) Vital Signs Temp Pulse Pulse Resp BP Pulse Ox 10/11/20 11:09 37.2 C 96 H 18 136/81 91 10/11/20 08:12 36.5 C 112 H 18 121/75 90 10/11/20 08:00 90 10/11/20 05:00 36.9 C 93 H 18 121/72 10/11/20 03:30 85 12 93 Laboratory Results Short CBC 10/10/20 10/11/20 Range/Units 15:53 06:48 WBC 8.53 6.44 (4.8-10.8) K/uL Hgb 13.1 L 12.6 L (14.0-18.0) g/dL Hct 40.7 L 40.3 L (42-52) % Plt Count 198 184 (130-400) K/uL [facility] 10/10/20 10/11/20 15:53 06:48 Sodium 144 142 Potassium 4.1 3.7 Chloride 112 H 106 Carbon Dioxide 25 31 BUN 13 13 Creatinine 1.13 1.12 Glucose 122 H 106 H Calcium 8.8 8.6 Cardiac Enzymes 10/10/20 Range/Units 15:53 Troponin I < 0.015 (0-0.045) ng/ml Medications Administered Current Inpatient Medications Acetaminophen (Acetaminophen 325 Mg Tab) 650 mg PO Q4H PRN PRN Reason: Pain or Fever Stop: 11/09/20 19:52 Albuterol (Albuterol Hfa 8 Gm Inhaler) 1 puffs INH Q6R PRN PRN Reason: Shortness Of Breath Stop: 11/09/20 22:16 Amiodarone HCl (Amiodarone 200 Mg Tab) 200 mg PO DAILY [facility] Stop: 11/10/20 08:59 Last Admin: 10/11/20 08:37 Dose: 200 mg Documented by: Aspirin (Aspirin 81 Mg Ectab) 81 mg PO DAILY [facility] Stop: 11/10/20 08:59 Last Admin: 10/11/20 08:37 Dose: 81 mg Documented by: Atorvastatin Calcium (Atorvastatin 40 Mg Tab) 40 mg PO DAILY [facility] Stop: 11/10/20 08:59 Last Admin: 10/11/20 08:37 Dose: 40 mg Documented by: Cyanocobalamin (Cyanocobalamin 500 Mcg Tablet (Vitamin B-12)) 500 mcg PO DAILY [facility] Stop: 11/10/20 08:59 Last Admin: 10/11/20 08:37 Dose: 500 mcg Documented by: Famotidine (Famotidine 40 Mg Tablet) 40 mg PO DAILY [facility] Stop: 11/10/20 08:59 Last Admin: 10/11/20 08:37 Dose: 40 mg Documented by: Fluticasone/Vilanterol (Fluticasone/Vilanterol 200/25mcg 14 Puffs/Inhaler) 1 puffs INH DAILY [facility] Stop: 11/10/20 08:59 Last Admin: 10/11/20 10:06 Dose: 1 puffs Documented by: Diltiazem HCl 125 mg/ Dextrose 125 mls @ 5 mls/hr IV .Q24H [facility]; Protocol Stop: 11/09/20 15:59 Last Admin: 10/11/20 11:05 Dose: 10 mg/hr, 10 mls/hr Documented by: Furosemide 40 mg/ Syringe 4 mls @ 4 mls/min IV BID17 [facility] Stop: 11/10/20 08:59 Last Admin: 10/11/20 08:38 Dose: 4 mls/min Documented by: Lisinopril (Lisinopril 2.5 Mg Tab) 2.5 mg PO DAILY [facility] Stop: 11/10/20 08:59 Last Admin: 10/11/20 08:37 Dose: 2.5 mg Documented by: Metoprolol Succinate (Metoprolol Succ 50mg Ext Rel Tab) 100 mg PO BID [facility] Stop: 11/10/20 08:59 Ondansetron HCl (Ondansetron Inj 2 Mg/Ml 2 Ml Vial) 4 mg IV Q6H PRN PRN Reason: Nausea Stop: 11/09/20 19:52 Pantoprazole Sodium (Pantoprazole 40 Mg Tab) 40 mg PO BID [facility]; Protocol Stop: 11/10/20 08:59 Last Admin: 10/11/20 08:37 Dose: 40 mg Documented by: Polyethylene Glycol (Polyethylene (Miralax) 17 Gm Pack) 17 gm PO DAILY PRN PRN Reason: Constipation Stop: 11/09/20 19:52 Potassium Chloride (Potassium Chloride Pwd 20 Meq Pack) 20 meq PO DAILY [facility] Stop: 11/10/20 08:59 Last Admin: 10/11/20 08:38 Dose: 20 meq Documented by: Umeclidinium [place] (Umeclidinium [place] 62.5mcg/Blister 7 Puffs/Inhaler) 1 puffs INH DAILY [facility] Stop: 11/10/20 08:59 Last Admin: 10/11/20 08:38 Dose: 1 puffs Documented by:
[2020-10-11] MEDS ORDERED: GLUCAGON FOR INJ 1 MG VIAL IM PRN (14:45)
[2020-10-11] MEDS ORDERED: CARBOHYDRATES FOR HYPOGLYCEMIA PO PRN (14:45)
[2020-10-11] MEDS ORDERED: GLUCOSE 40% GEL 15 GM TUBE PO PRN (14:45)
[2020-10-11] MEDS ORDERED: DEXTROSE 50% 50 ML SYRINGE IV PRN (14:45)
[2020-10-11] MEDS ORDERED: GLUCOSE 10 TABS/TUBE PO PRN (14:45)
[2020-10-11] MEDS: INSULIN ASPART 100 UNITS/ML 3 ML PEN SC SCH ×2 (16:56→20:49)
[2020-10-12] MEDS: dilTIAZem HCL 125 MG in DEXTROSE 5% 100 ML IV SCH ×2 (01:25→17:44)
--- NOTE | 2020-10-12 05:31 | Electrocardiogram Report ---
Test Reason : Blood Pressure : / mmHG Vent. Rate : 141 BPM Atrial Rate : 131 BPM P-R Int : 000 ms QRS Dur : 146 ms QT Int : 348 ms P-R-T Axes : 000 042 242 degrees QTc Int : 533 ms Atrial fibrillation with rapid ventricular response Left bundle branch block Abnormal ECG No previous ECGs available Confirmed by Jamaal Maier ([id number]) on 10/12/2020 5:30:45 AM Referred By: Blanca Fernandez Confirmed By:Jamaal Maier
--- NOTE | 2020-10-12 05:55 | Electrocardiogram Report ---
Test Reason : Blood Pressure : / mmHG Vent. Rate : 097 BPM Atrial Rate : 357 BPM P-R Int : 000 ms QRS Dur : 168 ms QT Int : 444 ms P-R-T Axes : 000 034 201 degrees QTc Int : 563 ms Atrial fibrillation Left bundle branch block Abnormal ECG When compared with ECG of 10-OCT-2020 15:51, No significant change was found Confirmed by Jamaal Maier ([id number]) on 10/12/2020 5:55:00 AM Referred By: Blanca Fernandez Confirmed By:Jamaal Maier
[2020-10-12 06:29] LABS: Hematocrit (blood only) 41.8 % (42-52); Hemoglobin 13.3 g/dL (14.0-18.0); Mean Corpuscular Hemoglobin 30.3 pg (25-34); Mean Corpuscular Hgb Conc 31.8 g/dL (32-36); Mean Corpuscular Volume 95.2 fL (80-100); Mean Platelet Volume 10.1 fL (7.4-10.4); Platelet Count 194 K/uL (130-400); RDW Coefficient of Variation 16.3 % (11.5-14.5); Red Blood Count 4.39 M/uL (4.7-6.1)
[2020-10-12 07:07] LABS: BUN Creatinine Ratio 11.3 (10-20); Calcium 8.6 mg/dl (8.5-10.1); Creatinine Clr Calc Pharmacy 116.1 ml/min; Est GFR (African American) 82.4 ml/min; Est GFR (Non-African American) 71.1 ml/min; Magnesium 1.8 mg/dl (1.8-2.4); Potassium 3.7 mmol/L (3.5-5.1)
[2020-10-12 07:08] LABS: Phosphorus 2.7 mg/dl (2.5-4.9)
[2020-10-12] MEDS: INSULIN ASPART 100 UNITS/ML 3 ML PEN SC SCH ×4 (08:11→21:30)
[2020-10-12] MEDS: FUROSEMIDE 40 MG in SYRINGE 0 ML IV SCH ×2 (09:13→16:27)
[2020-10-12] MEDS: FLUTICASONE/VILANTEROL 200/25MCG 14 PUFFS/INHALER INH SCH (09:14)
[2020-10-12] MEDS: UMECLIDINIUM BROMIDE 62.5MCG/BLISTER 7 PUFFS/INHALER INH SCH (09:14)
--- NOTE | 2020-10-12 09:37 | Anesthesiology Consultation ---
Date of Service October 12, 2020 Assessment & Plan Chart Review Chart Review: Acceptable Risk for Surgery and Patient NOT seen in Pre Admission Testing Consults Requested none ASA ASA4 Proposed Anesthesia Anesthesia Type: General Anesthesia Line Insertion: Arterial line and Central Venous Catheter History Surgery Operation Date: 10/12/20 11:30 Proposed Procedures p AV Node Ablation - Heidi Stewart DO s ICD Biventricular Implant Anesthesia - Heidi Stewart DO Height/Weight Height: 6 ft 3 in Weight: 168.1 kg Allergies Allergy/AdvReac Type Severity Reaction Status Date / Time codeine Allergy Hives Unverified 10/10/20 17:00 TEA Allergy Anaphylaxis Uncoded 10/10/20 17:01 TIDE LAUNDRY DETERGENT Allergy Rash Uncoded 10/10/20 17:02 Medications Home Medications Medication Instructions Recorded Confirmed Last Taken albuterol sulfate 1 inh INHALATION Q6H PRN 10/10/20 10/10/20 Unknown amiodarone 200 mg PO DAILY 10/10/20 10/10/20 Unknown apixaban [Eliquis] 5 mg PO BID 10/10/20 10/10/20 Unknown aspirin 81 mg PO DAILY 10/10/20 10/10/20 Unknown atorvastatin 40 mg PO DAILY 10/10/20 10/10/20 Unknown cyanocobalamin (vitamin B-12) 500 mcg PO DAILY 10/10/20 10/10/20 Unknown famotidine 40 mg PO DAILY 10/10/20 10/10/20 Unknown lisinopril 2.5 mg PO DAILY 10/10/20 10/10/20 Unknown metoprolol succinate 100 mg PO BID 10/10/20 10/10/20 Unknown omeprazole 20 mg PO BID 10/10/20 10/10/20 Unknown potassium chloride [Klor-Con] 20 meq PO DAILY 10/10/20 10/10/20 Unknown torsemide 40 mg PO DAILY 10/10/20 10/10/20 Unknown umeclidinium [Incruse Ellipta] 1 inh INHALATION DAILY 10/10/20 10/10/20 Unknown Active Medications Generic Name Dose Route Start Last Admin Trade Name Freq PRN Reason Stop Dose Admin Amiodarone HCl 200 mg 10/11/20 09:00 10/11/20 08:37 Amiodarone 200 Mg Tab PO 11/10/20 08:59 200 mg DAILY [facility] Administration Aspirin 81 mg 10/11/20 09:00 10/11/20 08:37 Aspirin 81 Mg Ectab PO 11/10/20 08:59 81 mg DAILY [facility] Administration Atorvastatin Calcium 40 mg 10/11/20 09:00 10/11/20 08:37 Atorvastatin 40 Mg Tab PO 11/10/20 08:59 40 mg DAILY [facility] Administration Cyanocobalamin 500 mcg 10/11/20 09:00 10/11/20 08:37 Cyanocobalamin 500 Mcg Tablet (Vitamin B-12) PO 11/10/20 08:59 500 mcg DAILY [facility] Administration Famotidine 40 mg 10/11/20 09:00 10/11/20 08:37 Famotidine 40 Mg Tablet PO 11/10/20 08:59 40 mg DAILY [facility] Administration Fluticasone/Vilanterol 1 puffs 10/11/20 09:00 10/12/20 09:14 Fluticasone/Vilanterol 200/25mcg 14 Puffs/Inhaler INH 11/10/20 08:59 1 puffs DAILY [facility] Administration Diltiazem HCl 125 mg/ Dextrose 125 mls @ 10 mls/hr 10/10/20 16:00 10/12/20 01:25 IV 11/09/20 15:59 10 mg/hr .[id number] [facility] 10 mls/hr Administration Protocol 10 MG/HR Furosemide 40 mg/ Syringe 4 mls @ 4 mls/min 10/11/20 09:00 10/12/20 09:13 IV 11/10/20 08:59 4 mls/min BID17 [facility] Administration Insulin Aspart 0 units 10/11/20 16:30 10/12/20 08:11 Insulin Aspart 100 Units/Ml 3 Ml Pen SC 11/10/20 16:29 Not Given ACHS [facility] Lisinopril 2.5 mg 10/11/20 09:00 10/11/20 08:37 Lisinopril 2.5 Mg Tab PO 11/10/20 08:59 2.5 mg DAILY [facility] Administration Pantoprazole Sodium 40 mg 10/11/20 09:00 10/11/20 20:48 Pantoprazole 40 Mg Tab PO 11/10/20 08:59 40 mg BID [facility] Administration Protocol Potassium Chloride 20 meq 10/11/20 09:00 10/11/20 08:38 Potassium Chloride Pwd 20 Meq Pack PO 11/10/20 08:59 20 meq DAILY [facility] Administration Umeclidinium [place] 1 puffs 10/11/20 09:00 10/12/20 09:14 Umeclidinium [place] 62.5mcg/Blister 7 Puffs/Inhaler INH 11/10/20 08:59 1 puffs DAILY [facility] Administration Past Medical History Medical History Afib Diabetes mellitus, type II HLD (hyperlipidemia) HTN (hypertension) LBBB (left bundle branch block) Morbid obesity No pertinent family history Noncompliance LIZA (obstructive sleep apnea) Pulmonary hypertension Exercise / Class Metabolic Activity III < 4 Walking/Shop/Light housework Past Family History Family History Other Hypertension Past Surgical History Surgical History No pertinent past surgical history Past Anesthesia History No Hx of Anesthesia Complications and No Family Hx of Anesthesia Complications History of PONV No Hx of PONV and No Hx of Motion Sickness Social History Smoking Status: Never smoker Do You Dip or Chew Tobacco: Yes Hx Alcohol Use: Yes alcohol intake frequency: holidays/special occasions only Hx Substance Use: No Physical Exam Vital Signs Last Vital Signs Temp 36.6 C 10/12/20 07:45 Pulse 88 10/12/20 07:45 Resp 21 10/12/20 07:45 BP 129/93 10/12/20 07:45 Pulse Ox 92 10/12/20 07:45 Testing Laboratory Results 10/12/20 06:15 10/12/20 06:15 PT 10.8 Seconds (9.0-12.0) 10/10/20 15:53 INR 1.1 (0.9-1.1) 10/10/20 15:53 APTT 29.0 Seconds (21.0-31.0) 10/10/20 15:53 10/12/20 07:46 POC Glucose 125 H Electrocardiogram Date: 10/12/20 Findings: + AFIB @ (at 97) and + LBBB Chest X-Ray Date: 10/10/20 Findings: + cardiomegaly and + pulmonary vascular congestion
--- NOTE | 2020-10-12 10:01 | Cardiology Progress Note ---
Date of Service October 12, 2020 Assessment & Plan (1) Atrial fibrillation with RVR: (2) Acute decompensated heart failure: (3) LBBB (left bundle branch block): The patient for EP procedure today. Eliquis has been held. He has been diuresed for several days and lost approximately 10 pounds of fluid weight. Admission and Anticipated Discharge Date Admission Date: October 10, 2020 Subjective The patient had an uneventful night. He has been shaved as per the recommendations of anesthesia for his procedure today. Review of Systems Review of Systems: All systems reviewed & are unremarkable except as noted in Subjective Physical Exam Physical Exam: General: no acute distress and stated age Head: normocephalic, no masses, lesions, tenderness or abnormalities Eyes: conjunctiva are pink and non-injected, sclera clear Neck: supple, no adenopathy, no bruits, normal jugular venous pulse, no hepatojugular reflux Chest: normal shape and normal respiratory effort Lungs: clear to auscultation and percussion Cardiac Exam: - irregular rate & rhythm, no murmurs gallops or rubs - normal S1, normal S2 Pulses: 2(+) throughout Abdomen: abdomen soft, non-tender, no abnormal masses and no hepatosplenomegaly Musculoskeletal: no gait disturbance, no joint inflammation, no deforming arthritis Extremities: no edema and no cyanosis Neuro: grossly normal exam Results & Data ([facility]) Vital Signs (Past 12 Hours) Vital Signs Temp Pulse Resp BP Pulse Ox 10/12/20 07:45 36.6 C 88 21 129/93 92 10/12/20 04:14 36.9 C 81 19 105/73 94 10/11/20 23:58 37.0 C 79 20 111/76 92 Laboratory Results Laboratory Results - last 24 hr 10/10/20 10/11/20 10/11/20 16:02 16:29 20:48 WBC RBC Hgb POC Hgb 13.6 L Hct POC Hct 40 L MCV MCH MCHC RDW Std Deviation RDW Coeff of Martin Plt Count MPV POC Sodium 145 H Sodium POC Potassium 4.1 Potassium POC Chloride 106 Chloride Carbon Dioxide POC Total CO2 24 Anion Gap POC Anion Gap 20.0 POC BUN 13 BUN Creatinine POC Creatinine 1.2 Est Cr Clr Drug Dosing Est GFR ( Amer) Est GFR (Non-Af Amer) BUN/Creatinine Ratio Glucose POC Glucose 102 H 113 H POC Glucose (other) 127 H Calcium POC Ioniz Calcium Shreya 1.22 Phosphorus Magnesium 10/12/20 10/12/20 10/12/20 06:15 06:15 07:46 WBC 6.20 RBC 4.39 L Hgb 13.3 L POC Hgb Hct 41.8 L POC Hct MCV 95.2 MCH 30.3 MCHC 31.8 L RDW Std Deviation 57.0 H RDW Coeff of Martin 16.3 H Plt Count 194 MPV 10.1 POC Sodium Sodium 141 POC Potassium Potassium 3.7 POC Chloride Chloride 103 Carbon Dioxide 34 H POC Total CO2 Anion Gap 4.0 POC Anion Gap POC BUN BUN 12 Creatinine 1.10 POC Creatinine Est Cr Clr Drug Dosing 116.1 Est GFR ( Amer) 82.4 Est GFR (Non-Af Amer) 71.1 BUN/Creatinine Ratio 11.3 Glucose 108 H POC Glucose 125 H POC Glucose (other) Calcium 8.6 POC Ioniz Calcium Shreya Phosphorus 2.7 Magnesium 1.8 Medications Administered Current Inpatient Medications Acetaminophen (Acetaminophen 325 Mg Tab) 650 mg PO Q4H PRN PRN Reason: Pain or Fever Stop: 11/09/20 19:52 Albuterol (Albuterol Hfa 8 Gm Inhaler) 1 puffs INH Q6R PRN PRN Reason: Shortness Of Breath Stop: 11/09/20 22:16 Amiodarone HCl (Amiodarone 200 Mg Tab) 200 mg PO DAILY [facility] Stop: 11/10/20 08:59 Last Admin: 10/11/20 08:37 Dose: 200 mg Documented by: Aspirin (Aspirin 81 Mg Ectab) 81 mg PO DAILY [facility] Stop: 11/10/20 08:59 Last Admin: 10/11/20 08:37 Dose: 81 mg Documented by: Atorvastatin Calcium (Atorvastatin 40 Mg Tab) 40 mg PO DAILY [facility] Stop: 11/10/20 08:59 Last Admin: 10/11/20 08:37 Dose: 40 mg Documented by: Cyanocobalamin (Cyanocobalamin 500 Mcg Tablet (Vitamin B-12)) 500 mcg PO DAILY [facility] Stop: 11/10/20 08:59 Last Admin: 10/11/20 08:37 Dose: 500 mcg Documented by: Dextrose (Dextrose 50% 50 Ml Syringe) 25 - 50 ml IV UD PRN; Protocol PRN Reason: Hypoglycemia Protocol Stop: 11/10/20 14:44 Famotidine (Famotidine 40 Mg Tablet) 40 mg PO DAILY [facility] Stop: 11/10/20 08:59 Last Admin: 10/11/20 08:37 Dose: 40 mg Documented by: Fluticasone/Vilanterol (Fluticasone/Vilanterol 200/25mcg 14 Puffs/Inhaler) 1 puffs INH DAILY [facility] Stop: 11/10/20 08:59 Last Admin: 10/12/20 09:14 Dose: 1 puffs Documented by: Glucagon (Glucagon For Inj 1 Mg Vial) 1 mg IM UD PRN; Protocol PRN Reason: Hypoglycemia Protocol Stop: 11/10/20 14:44 Glucose (Glucose 40% Gel 15 Gm Tube) 15 - 30 gm PO UD PRN; Protocol PRN Reason: Hypoglycemia Protocol Stop: 11/10/20 14:44 Glucose (Glucose 10 Tabs/Tube) 4 - 8 tabs PO UD PRN; Protocol PRN Reason: Hypoglycemia Protocol Stop: 11/10/20 14:44 Diltiazem HCl 125 mg/ Dextrose 125 mls @ 10 mls/hr IV .[id number] [facility]; Protocol Stop: 11/09/20 15:59 Last Admin: 10/12/20 01:25 Dose: 10 mg/hr, 10 mls/hr Documented by: Furosemide 40 mg/ Syringe 4 mls @ 4 mls/min IV BID17 [facility] Stop: 11/10/20 08:59 Last Admin: 10/12/20 09:13 Dose: 4 mls/min Documented by: Insulin Aspart (Insulin Aspart 100 Units/Ml 3 Ml Pen) 0 units SC ACHS [facility] Stop: 11/10/20 16:29 Last Admin: 10/12/20 08:11 Dose: Not Given Documented by: Lisinopril (Lisinopril 2.5 Mg Tab) 2.5 mg PO DAILY [facility] Stop: 11/10/20 08:59 Last Admin: 10/11/20 08:37 Dose: 2.5 mg Documented by: Metoprolol Succinate (Metoprolol Succ 50mg Ext Rel Tab) 100 mg PO BID [facility] Stop: 11/10/20 08:59 Miscellaneous (Carbohydrates For Hypoglycemia ) 15 - 30 gm PO UD PRN PRN Reason: Hypoglycemia Treatment Stop: 11/10/20 14:44 Ondansetron HCl (Ondansetron Inj 2 Mg/Ml 2 Ml Vial) 4 mg IV Q6H PRN PRN Reason: Nausea Stop: 11/09/20 19:52 Pantoprazole Sodium (Pantoprazole 40 Mg Tab) 40 mg PO BID [facility]; Protocol Stop: 11/10/20 08:59 Last Admin: 10/11/20 20:48 Dose: 40 mg Documented by: Polyethylene Glycol (Polyethylene (Miralax) 17 Gm Pack) 17 gm PO DAILY PRN PRN Reason: Constipation Stop: 11/09/20 19:52 Potassium Chloride (Potassium Chloride Pwd 20 Meq Pack) 20 meq PO DAILY [facility] Stop: 11/10/20 08:59 Last Admin: 10/11/20 08:38 Dose: 20 meq Documented by: Umeclidinium [place] (Umeclidinium [place] 62.5mcg/Blister 7 Puffs/Inhaler) 1 puffs INH DAILY [facility] Stop: 11/10/20 08:59 Last Admin: 10/12/20 09:14 Dose: 1 puffs Documented by:
[2020-10-12] MEDS: ATORVASTATIN 40 MG TAB PO SCH (10:07)
[2020-10-12] MEDS ORDERED: PROPOFOL IV EMULSION 10 MG/ML 20 ML VIAL IV ONE (10:07)
[2020-10-12] MEDS ORDERED: fentaNYL citrate 100 MCG/2 ML VIAL ONE ×2 (10:07→16:03)
[2020-10-12] MEDS ORDERED: ONDANSETRON INJ 2 MG/ML 2 ML VIAL ONE (10:07)
[2020-10-12] MEDS: ASPIRIN 81 MG ECTAB PO SCH (10:07)
[2020-10-12] MEDS: FAMOTIDINE 40 MG TABLET PO SCH (10:07)
[2020-10-12] MEDS: PANTOprazole 40 MG TAB PO SCH ×2 (10:07→21:00)
[2020-10-12] MEDS: POTASSIUM CHLORIDE PWD 20 MEQ PACK PO SCH (10:07)
[2020-10-12] MEDS ORDERED: LIDOCAINE 2% 2 ML VIAL/AMP(20MG/ML) INFIL ONE (10:07)
[2020-10-12] MEDS ORDERED: DEXAMETHASONE SOD INJ 4 MG/ML VIAL ONE (10:07)
[2020-10-12] MEDS: CYANOCOBALAMIN 500 MCG TABLET (VITAMIN B-12) PO SCH (10:07)
[2020-10-12] MEDS ORDERED: WATER, STERILE FOR INJ 10 ML VIAL ONE ×2 (11:07→14:49)
[2020-10-12] MEDS ORDERED: LIDOCAINE 1% LOCAL 20 ML VIAL ONE ×2 (11:07→14:21)
[2020-10-12] MEDS ORDERED: VANCOMYCIN HCL 1000MG/20ML VIAL ONE ×2 (11:07→14:49)
[2020-10-12] MEDS ORDERED: BUPIVACAINE 0.25% 30 ML VIAL ONE (11:07)
--- NOTE | 2020-10-12 11:22 | History & Physical Bridge Note ---
Date of Service October 12, 2020 History & Physical Bridge Note I have examined the patient, reviewed the History & Physical and in the interval since the performance of the History & Physical I have noted the following changes of clinical significance: Pt diuresed well over the past 48 hours; he is for a BIV ICD inorder to perform an AVN ablation due to AF with RVR despite high dose AVN blockers as well as recurrent hospitalizations for acute systolic HF, NYHA Class III. Re-discussed the procedure and potential risks; consents obtained.
[2020-10-12] MEDS ORDERED: SUCCINYLCHOLINE CHLORIDE 20 MG/ML 10 ML VIAL IV ONE (14:35)
[2020-10-12] MEDS ORDERED: ROCURONIUM BROMIDE 10 MG/ML 5 ML VIAL IV ONE ×2 (14:35→17:20)
[2020-10-12] MEDS ORDERED: NEOSTIGMINE METHYLSULFATE 1 MG/ML 10ML VIAL ONE (14:38)
[2020-10-12] MEDS ORDERED: GLYCOPYRROLATE 0.2 MG/ML VIAL ONE (14:38)
[2020-10-12] MEDS: AMIODARONE 200 MG TAB PO SCH (15:19)
[2020-10-12] MEDS: lisinopril 2.5 MG TAB PO SCH (15:19)
--- NOTE | 2020-10-12 16:28 | Operative Report ---
Post Operative Report Pre & Post Diagnosis Pre: NICM, CHF, AF wtih RVR Post: same plus CHB Operation Date: 10/12/20 11:30 <No data on this case meets the specified criteria> I identified the patient and participated in the time-out.: Yes Procedure Operation Date: 10/12/20 11:30 BiV ICD Peripheral and coronary sinus venogram Intracardiac EGM HIS bundle recording AVN ablation <No data on this case meets the specified criteria> Surgeon Heidi Stewart, DO [employer] none Estimated Blood Loss 30 Findings Consistent with Post-Op Diagnosis Specimens none Description of Procedure see official report I attest to the content of the Intraoperative Record and any orders documented therein. Any exceptions are noted below.
[2020-10-12] MEDS ORDERED: FUROSEMIDE 10 MG/ML 10 ML VIAL IV ONE (16:32)
[2020-10-12] MEDS ORDERED: SUGAMMADEX SODIUM 200 MG/2 ML VIAL IV ONE (16:47)
--- NOTE | 2020-10-12 18:24 | Hospitalist Progress Note ---
Date of Service October 12, 2020 Assessment & Plan (1) Atrial fibrillation with RVR: This is a 64-year-old male with PMH of CHF, atrial fibrillation on Eliquis, type 2 diabetes, chronic respiratory failure with hypoxia and hypercapnia on 2 L nasal cannula oxygen, asthma, sleep apnea, hypertension and other medical problems listed below who was sent over from [facility] cardiology for A. fib with RVR and decompensated heart failure. Multiple admissions at [facility] for A. fib with RVR Home regimen includes amiodarone and recently increased Toprol 100 mg twice daily Due for AV jeannie ablation with biventricular ICD implant later this week with Dr. Stewart Directed to come to [facility] for admission for improved rate control, diuresis prior to procedure HR initially 170s, now 96 Diltiazem bolus and drip initiated in ED- continued on the floor Continue to monitor closely Cardiology consulted -appreciate input Remains medically stable with controlled heart rate around 90s No chest pain and/or palpitation S/P : Operation Date: 10/12/20 11:30 BiV ICD Peripheral and coronary sinus venogram Intracardiac EGM HIS bundle recording AVN ablation (2) Acute decompensated heart failure: Recurrent admissions for decompensated heart failure Most recent TTE from 09/13/2020 with EF of 30 with diffuse hypokinesis. Septal motion is abnormal consistent with LBBB. Moderate pulmonary hypertension is present Torsemide increased during previous hospital admission to 40 mg daily - holding currently Given 40mg IV Lasix in ED, valdes catheter placed. Strict I&Os Plan for Lasix 40mg [id number] No symptoms of fluid overload We will continue current medications Denies any increasing shortness of breath (3) HTN (hypertension): Continue Toprol, lisinopril with hold parameters Blood pressure is controlled (4) HLD (hyperlipidemia): Continue statin (5) LIZA (obstructive sleep apnea): Bipap HS (6) LBBB (left bundle branch block): Chronic (7) Noncompliance: History of non-compliance with medications DVT Ppx: Eliquis Code status: FULL PCP: Raghu Dispo: Admitted to PCU. . (8) Acute systolic heart failure: Admission and Anticipated Discharge Date Admission Date: October 10, 2020 Subjective 10/11/2020 The patient was seen and examined in telemetry unit He was transferred from [facility] etl application developer for possible ICD placement He has been stable denies any symptoms this morning 10/12/2020 The patient was seen and examined in telemetry unit He is a status post ICD placement and also ablation Has been complaining of chest pain at the site of surgery and nausea He wants to go home before Saturday Review of Systems Review of Systems: All systems reviewed and are unremarkable except as noted below Respiratory: no cough and no dyspnea Cardiovascular: + chest pain (At ICD implantation site); no palpitations Physical Exam Physical Exam: Lying in bed comfortably Constitutional: well developed, well nourished and + obese; not ill appearing Eyes: PERRL, conjunctivae normal, anicteric sclerae ENMT: external ear and nose normal, oropharynx normal Neck: trachea midline, no thyromegaly Respiratory: no respiratory distress Auscultation: lungs clear to auscultation bilaterally and + diminished lung sounds Cardiovascular: Rate/Rhythm: regular rate and regular rhythm Heart Sounds: no murmur Extremities: + edema (1-2+ edema bilaterally and seems to be chronic) Gastrointestinal (Abdomen): Inspection/Auscultation: + abdomen distended and normal bowel sounds Percussion/Palpation: abdomen soft; abdomen nontender Musculoskeletal: Localized tenderness over the ICD placement site Neurologic: Alert, awake and oriented x3 Lymphatic: no cervical or axillary lymphadenopathy Results & Data Results & Data ([facility]) Vital Signs (Past 12 Hours) Vital Signs Temp Pulse Pulse Resp BP Pulse Ox 10/12/20 17:37 36.7 C 89 18 131/87 94 10/12/20 17:27 36.6 C 89 12 125/93 94 10/12/20 17:17 36.7 C 89 12 131/94 88 L 10/12/20 17:07 36.6 C 91 H 12 131/84 87 L 10/12/20 17:02 36.7 C 90 12 131/91 92 10/12/20 10:56 85 18 140/79 91 10/12/20 08:00 109 H 10/12/20 07:45 36.6 C 88 21 129/93 92 Laboratory Results Short CBC 10/12/20 Range/Units 06:15 WBC 6.20 (4.8-10.8) K/uL Hgb 13.3 L (14.0-18.0) g/dL Hct 41.8 L (42-52) % Plt Count 194 (130-400) K/uL BMP 10/12/20 06:15 Sodium 141 Potassium 3.7 Chloride 103 Carbon Dioxide 34 H BUN 12 Creatinine 1.10 Glucose 108 H Calcium 8.6 Medications Administered Current Inpatient Medications Acetaminophen (Acetaminophen 325 Mg Tab) 650 mg PO Q4H PRN PRN Reason: Pain or Fever Stop: 11/09/20 19:52 Albuterol (Albuterol Hfa 8 Gm Inhaler) 1 puffs INH Q6R PRN PRN Reason: Shortness Of Breath Stop: 11/09/20 22:16 Apixaban (Apixaban 5 Mg Tablet) 5 mg PO BID [facility] Stop: 11/12/20 08:59 Aspirin (Aspirin 81 Mg Ectab) 81 mg PO DAILY [facility] Stop: 11/10/20 08:59 Last Admin: 10/12/20 10:07 Dose: Not Given Documented by: Atorvastatin Calcium (Atorvastatin 40 Mg Tab) 40 mg PO DAILY [facility] Stop: 11/10/20 08:59 Last Admin: 10/12/20 10:07 Dose: Not Given Documented by: Cyanocobalamin (Cyanocobalamin 500 Mcg Tablet (Vitamin B-12)) 500 mcg PO DAILY [facility] Stop: 11/10/20 08:59 Last Admin: 10/12/20 10:07 Dose: Not Given Documented by: Dextrose (Dextrose 50% 50 Ml Syringe) 25 - 50 ml IV UD PRN; Protocol PRN Reason: Hypoglycemia Protocol Stop: 11/10/20 14:44 Famotidine (Famotidine 40 Mg Tablet) 40 mg PO DAILY [facility] Stop: 11/10/20 08:59 Last Admin: 10/12/20 10:07 Dose: Not Given Documented by: Fluticasone/Vilanterol (Fluticasone/Vilanterol 200/25mcg 14 Puffs/Inhaler) 1 puffs INH DAILY [facility] Stop: 11/10/20 08:59 Last Admin: 10/12/20 09:14 Dose: 1 puffs Documented by: Glucagon (Glucagon For Inj 1 Mg Vial) 1 mg IM UD PRN; Protocol PRN Reason: Hypoglycemia Protocol Stop: 11/10/20 14:44 Glucose (Glucose 40% Gel 15 Gm Tube) 15 - 30 gm PO UD PRN; Protocol PRN Reason: Hypoglycemia Protocol Stop: 11/10/20 14:44 Glucose (Glucose 10 Tabs/Tube) 4 - 8 tabs PO UD PRN; Protocol PRN Reason: Hypoglycemia Protocol Stop: 11/10/20 14:44 Furosemide 40 mg/ Syringe 4 mls @ 4 mls/min IV BID17 [facility] Stop: 11/10/20 08:59 Last Admin: 10/12/20 16:27 Dose: 4 mls/min Documented by: Cefazolin Sodium 3,000 mg/ (Dextrose) 72.5 mls @ 145 mls/hr IV Q8H [facility] Stop: 10/13/20 19:59 Insulin Aspart (Insulin Aspart 100 Units/Ml 3 Ml Pen) 0 units SC [facility] Stop: 11/10/20 16:29 Last Admin: 10/12/20 17:59 Dose: Not Given Documented by: Lisinopril (Lisinopril 2.5 Mg Tab) 2.5 mg PO DAILY [facility] Stop: 11/10/20 08:59 Last Admin: 10/12/20 15:19 Dose: Not Given Documented by: Metoprolol Succinate (Metoprolol Succ 50mg Ext Rel Tab) 50 mg PO QAM [facility] Stop: 11/12/20 08:59 Miscellaneous (Carbohydrates For Hypoglycemia ) 15 - 30 gm PO UD PRN PRN Reason: Hypoglycemia Treatment Stop: 11/10/20 14:44 Ondansetron HCl (Ondansetron Inj 2 Mg/Ml 2 Ml Vial) 4 mg IV Q6H PRN PRN Reason: Nausea Stop: 11/09/20 19:52 Pantoprazole Sodium (Pantoprazole 40 Mg Tab) 40 mg PO BID [facility]; Protocol Stop: 11/10/20 08:59 Last Admin: 10/12/20 10:07 Dose: Not Given Documented by: Polyethylene Glycol (Polyethylene (Miralax) 17 Gm Pack) 17 gm PO DAILY PRN PRN Reason: Constipation Stop: 11/09/20 19:52 Potassium Chloride (Potassium Chloride Pwd 20 Meq Pack) 20 meq PO DAILY [facility] Stop: 11/10/20 08:59 Last Admin: 10/12/20 10:07 Dose: Not Given Documented by: Umeclidinium [place] (Umeclidinium [place] 62.5mcg/Blister 7 Puffs/Inhaler) 1 puffs INH DAILY [facility] Stop: 11/10/20 08:59 Last Admin: 10/12/20 09:14 Dose: 1 puffs Documented by:
--- NOTE | 2020-10-12 19:21 | Anesthesiology Progress Note ---
Date of Service October 12, 2020 Anesthesia Post Procedure Vital Signs Vital Signs: Temp Pulse Pulse Resp BP Pulse Ox 10/12/20 18:17 36.6 C 89 19 132/91 92 10/12/20 17:37 36.7 C 89 18 131/87 94 10/12/20 17:27 36.6 C 89 12 125/93 94 10/12/20 17:17 36.7 C 89 12 131/94 88 L 10/12/20 17:07 36.6 C 91 H 12 131/84 87 L 10/12/20 17:02 36.7 C 90 12 131/91 92 10/12/20 10:56 85 18 140/79 91 10/12/20 08:00 109 H 10/12/20 07:45 36.6 C 88 21 129/93 92 10/12/20 04:14 36.9 C 81 19 105/73 94 10/11/20 23:58 37.0 C 79 20 111/76 92 10/11/20 19:42 36.7 C 111 H 19 120/77 92 Transfer of Care Handoff Completed per policy Notes Mental Status: alert / awake / arousable and participated in evaluation Patient Amnestic to Procedure: Yes Nausea / Vomiting: adequately controlled Pain: adequately controlled Airway Patency, RR, SpO2: stable & adequate BP & HR: stable & adequate Hydration State: stable & adequate Anesthetic Complications: no major complications apparent and Pt Satisfied with anesthetic care
[2020-10-12] MEDS: ceFAZolin 3,000 MG in DEXTROSE 5% 50 ML IV SCH (21:03)
[2020-10-12] MEDS ORDERED: diphenhydrAMINE 50 MG/ML VIAL IV STA (22:22)
[2020-10-13] MEDS: ceFAZolin 3,000 MG in DEXTROSE 5% 50 ML IV SCH ×2 (03:38→12:14)
[2020-10-13 06:18] LABS: Basophils # (auto) 0.01 K/uL (0-0.2); Basophils % (auto) 0.1 %; Eosinophils # (auto) 0.03 K/uL (0-0.5); Eosinophils % (auto) 0.4 %; Hematocrit (blood only) 41.6 % (42-52); Hemoglobin 13.1 g/dL (14.0-18.0); Immature Granulocytes # (auto) 0.01 K/uL (0.00-0.02); Immature Granulocytes % (auto) 0.1 %; Lymphocytes # (auto) 1.21 K/uL (1.2-3.4); Lymphocytes % (auto) 18.1 %; Mean Corpuscular Hgb Conc 31.5 g/dL (32-36); Mean Corpuscular Volume 95.4 fL (80-100); Mean Platelet Volume 10.5 fL (7.4-10.4); Monocytes % (auto) 10.5 %; Neutrophils # (auto) 4.71 K/uL (1.4-6.5); Neutrophils % (auto) 70.8 %; Platelet Count 201 K/uL (130-400); RDW Coefficient of Variation 16.4 % (11.5-14.5); RDW Standard Deviation 57.3 fL (36.4-46.3); Red Blood Count 4.36 M/uL (4.7-6.1); White Blood Count 6.67 K/uL (4.8-10.8)
[2020-10-13 06:58] LABS: BUN Creatinine Ratio 10.4 (10-20); Calcium 8.1 mg/dl (8.5-10.1); Creatinine Clr Calc Pharmacy 143.8 ml/min; Est GFR (African American) 106.5 ml/min; Est GFR (Non-African American) 91.9 ml/min; Magnesium 1.8 mg/dl (1.8-2.4); Phosphorus 2.8 mg/dl (2.5-4.9); Potassium 3.5 mmol/L (3.5-5.1)
[2020-10-13] MEDS: lisinopril 2.5 MG TAB PO SCH (08:29)
[2020-10-13] MEDS: ATORVASTATIN 40 MG TAB PO SCH (08:30)
[2020-10-13] MEDS: PANTOprazole 40 MG TAB PO SCH (08:30)
[2020-10-13] MEDS: ASPIRIN 81 MG ECTAB PO SCH (08:30)
[2020-10-13] MEDS: FAMOTIDINE 40 MG TABLET PO SCH (08:30)
[2020-10-13] MEDS: CYANOCOBALAMIN 500 MCG TABLET (VITAMIN B-12) PO SCH (08:30)
[2020-10-13] MEDS: INSULIN ASPART 100 UNITS/ML 3 ML PEN SC SCH ×3 (08:32→17:03)
[2020-10-13] MEDS ORDERED: METOPROLOL SUCC 50MG EXT REL TAB PO SCH (09:00)
[2020-10-13] MEDS ORDERED: APIXABAN 5 MG TABLET PO SCH (09:00)
[2020-10-13] MEDS: FUROSEMIDE 40 MG in SYRINGE 0 ML IV SCH ×2 (09:26→17:03)
[2020-10-13] MEDS: FLUTICASONE/VILANTEROL 200/25MCG 14 PUFFS/INHALER INH SCH (09:33)
[2020-10-13] MEDS: POTASSIUM CHLORIDE PWD 20 MEQ PACK PO SCH (09:33)
[2020-10-13] MEDS: UMECLIDINIUM BROMIDE 62.5MCG/BLISTER 7 PUFFS/INHALER INH SCH (09:33)
--- NOTE | 2020-10-13 10:53 | Cardiology Progress Note ---
Date of Service October 13, 2020 Assessment & Plan (1) Acute systolic heart failure: (2) Atrial fibrillation with RVR: (3) LBBB (left bundle branch block): (4) S/P cardiac pacemaker procedure: Patient doing well post pacer insertion and ablation yesterday. Incision is covered, dry and intact. Minimal pain. He diuresed with great improvement in CHF symptoms since admission. Down nearly 14 lbs. Discussed case with Dr. Stewart via telephone. Eliquis resumed at 5 mg BID. Metoprolol succinate reduced to 50 mg daily Amiodarone discontinued. Discharge on home dose torsemide 20 mg - 2 tablets daily He has been scheduled for wound check on Tuesday 10/17 at 9:30 at [facility]. He was provided with additional dressings and to keep site dry over the weekend. Nurse to give instructions to family upon discharge as well. Lifting restrictions reviewed with patient as well. he has close f/u with Juan Pablo Corona with [facility] on 10/27 as well for CHF. Stable for discharge today. Discussed with Dr. Blanchard Admission and Anticipated Discharge Date Admission Date: October 10, 2020 Supervising Physician Co-Signing Physician Notes I have seen and evaluated the patient. I have reviewed the medical record and discussed the case with Ms. Brandt. The patient is ready for discharge. He will have follow-up with Dr. Blanka velasco in [place]. Subjective Patient resting in bed comfortably. He denies acute cardiac complaints. Mild tenderness at incisional site. Dressing is clean, dry and intact. He reports improved shortness of breath since admission. No chest pain. No dizziness. Edema improved. Review of Systems Review of Systems: All systems reviewed & are unremarkable except as noted in HPI & below Physical Exam Constitutional: WD/WN, vitals as above + morbidly obese; no acute distress Eyes: PERRL, conjunctivae normal, anicteric sclerae Neck: trachea midline, no thyromegaly normal visual inspection Respiratory: normal respiratory effort; no respiratory distress Auscultation: no crackles, no rales and no wheezes Cardiovascular: Rate/Rhythm: regular rate Heart Sounds: no murmur Vessels: no JVD Extremities: + edema (trace pretibial edema) Chest (Breasts): Chest: + pacemaker (incision covered, dry and dressing and intact. ) Gastrointestinal (Abdomen): normal bowel sounds, soft, nontender, no hepatosplenomegaly Musculoskeletal: no cyanosis or clubbing, extremities motor strength 5/5 Skin: no rashes, warm and dry Neurologic: PERRL, EOMI, accommodation nl, no face palsy, no dysarthria Psychiatric: A+Ox3, euthymic affect Results & Data ([facility]) Vital Signs (Past 12 Hours) Vital Signs Temp Pulse Pulse Resp BP Pulse Ox 10/13/20 08:00 89 10/13/20 07:45 36.8 C 89 24 113/78 91 10/13/20 04:00 36.9 C 90 18 129/98 93 10/13/20 03:42 89 26 H 92 10/13/20 00:27 90 28 H 91 10/13/20 00:18 90 10/12/20 23:55 37.0 C 89 19 128/91 93 Laboratory Results 10/13/20 10/13/20 10/13/20 Range/Units 07:17 05:45 05:45 WBC 6.67 (4.8-10.8) K/uL RBC 4.36 L (4.7-6.1) M/uL Hgb 13.1 L (14.0-18.0) g/dL Hct 41.6 L (42-52) % MCV 95.4 (80-100) fL MCH 30.0 (25-34) pg MCHC 31.5 L (32-36) g/dL RDW Std Deviation 57.3 H (36.4-46.3) fL RDW Coeff of Martin 16.4 H (11.5-14.5) % Plt Count 201 (130-400) K/uL MPV 10.5 H (7.4-10.4) fL Immature Gran % (Auto) 0.1 % Neut % (Auto) 70.8 % Lymph % (Auto) 18.1 % [place] % (Auto) 10.5 % Eos % (Auto) 0.4 % Baso % (Auto) 0.1 % Neut # (Auto) 4.71 (1.4-6.5) K/uL Lymph # (Auto) 1.21 (1.2-3.4) K/uL [place] # (Auto) 0.70 H (0.11-0.59) K/uL Eos # (Auto) 0.03 (0-0.5) K/uL Baso # (Auto) 0.01 (0-0.2) K/uL Immature Gran # (Auto) 0.01 (0.00-0.02) K/uL Sodium 138 (136-145) mmol/L Potassium 3.5 (3.5-5.1) mmol/L Chloride 102 (98-107) mmol/L Carbon Dioxide 31 (21-32) mmol/L Anion Gap 5.0 (3-11) BUN 9 (7-18) mg/dl Creatinine 0.87 (0.6-1.4) mg/dl Est Cr Clr Drug Dosing 143.8 ml/min Est GFR ( Amer) 106.5 ml/min Est GFR (Non-Af Amer) 91.9 ml/min BUN/Creatinine Ratio 10.4 (10-20) Glucose 96 (70-99) mg/dl POC Glucose 101 H (70-99) mg/dl Calcium 8.1 L (8.5-10.1) mg/dl Phosphorus 2.8 (2.5-4.9) mg/dl Magnesium 1.8 (1.8-2.4) mg/dl 10/12/20 10/12/20 Range/Units 20:17 16:39 WBC (4.8-10.8) K/uL RBC (4.7-6.1) M/uL Hgb (14.0-18.0) g/dL Hct (42-52) % MCV (80-100) fL MCH (25-34) pg MCHC (32-36) g/dL RDW Std Deviation (36.4-46.3) fL RDW Coeff of [place] (11.5-14.5) % Plt Count (130-400) K/uL MPV (7.4-10.4) fL Immature Gran % (Auto) % Neut % (Auto) % Lymph % (Auto) % [place] % (Auto) % Eos % (Auto) % Baso % (Auto) % Neut # (Auto) (1.4-6.5) K/uL Lymph # (Auto) (1.2-3.4) K/uL [place] # (Auto) (0.11-0.59) K/uL Eos # (Auto) (0-0.5) K/uL Baso # (Auto) (0-0.2) K/uL Immature Gran # (Auto) (0.00-0.02) K/uL Sodium (136-145) mmol/L Potassium (3.5-5.1) mmol/L Chloride (98-107) mmol/L Carbon Dioxide (21-32) mmol/L Anion Gap (3-11) BUN (7-18) mg/dl Creatinine (0.6-1.4) mg/dl Est Cr Clr Drug Dosing ml/min Est GFR ( Amer) ml/min Est GFR (Non-Af Amer) ml/min BUN/Creatinine Ratio (10-20) Glucose (70-99) mg/dl POC Glucose 135 H 128 H (70-99) mg/dl Calcium (8.5-10.1) mg/dl Phosphorus (2.5-4.9) mg/dl Magnesium (1.8-2.4) mg/dl Diagnostic Findings Telemetry reviewed: Paced at 80 bpm Medications Administered Current Inpatient Medications Acetaminophen (Acetaminophen 325 Mg Tab) 650 mg PO Q4H PRN PRN Reason: Pain or Fever Stop: 11/09/20 19:52 Last Admin: 10/12/20 20:00 Dose: 650 mg Documented by: Albuterol (Albuterol Hfa 8 Gm Inhaler) 1 puffs INH Q6R PRN PRN Reason: Shortness Of Breath Stop: 11/09/20 22:16 Apixaban (Apixaban 5 Mg Tablet) 5 mg PO BID [facility] Stop: 11/12/20 08:59 Last Admin: 10/13/20 08:31 Dose: 5 mg Documented by: Aspirin (Aspirin 81 Mg Ectab) 81 mg PO DAILY [facility] Stop: 11/10/20 08:59 Last Admin: 10/13/20 08:30 Dose: 81 mg Documented by: Atorvastatin Calcium (Atorvastatin 40 Mg Tab) 40 mg PO DAILY [facility] Stop: 11/10/20 08:59 Last Admin: 10/13/20 08:30 Dose: 40 mg Documented by: Cyanocobalamin (Cyanocobalamin 500 Mcg Tablet (Vitamin B-12)) 500 mcg PO DAILY [facility] Stop: 11/10/20 08:59 Last Admin: 10/13/20 08:30 Dose: 500 mcg Documented by: Dextrose (Dextrose 50% 50 Ml Syringe) 25 - 50 ml IV UD PRN; Protocol PRN Reason: Hypoglycemia Protocol Stop: 11/10/20 14:44 Famotidine (Famotidine 40 Mg Tablet) 40 mg PO DAILY [facility] Stop: 11/10/20 08:59 Last Admin: 10/13/20 08:30 Dose: 40 mg Documented by: Fluticasone/Vilanterol (Fluticasone/Vilanterol 200/25mcg 14 Puffs/Inhaler) 1 puffs INH DAILY [facility] Stop: 11/10/20 08:59 Last Admin: 10/13/20 09:33 Dose: 1 puffs Documented by: Glucagon (Glucagon For Inj 1 Mg Vial) 1 mg IM UD PRN; Protocol PRN Reason: Hypoglycemia Protocol Stop: 11/10/20 14:44 Glucose (Glucose 40% Gel 15 Gm Tube) 15 - 30 gm PO UD PRN; Protocol PRN Reason: Hypoglycemia Protocol Stop: 11/10/20 14:44 Glucose (Glucose 10 Tabs/Tube) 4 - 8 tabs PO UD PRN; Protocol PRN Reason: Hypoglycemia Protocol Stop: 11/10/20 14:44 Furosemide 40 mg/ Syringe 4 mls @ 4 mls/min IV BID17 [facility] Stop: 11/10/20 08:59 Last Admin: 10/13/20 09:26 Dose: 4 mls/min Documented by: Cefazolin Sodium 3,000 mg/ (Dextrose) 72.5 mls @ 145 mls/hr IV Q8H [facility] Stop: 10/13/20 19:59 Last Infusion: 10/13/20 04:26 Dose: Infused Documented by: Insulin Aspart (Insulin Aspart 100 Units/Ml 3 Ml Pen) 0 units SC ACHS [facility] Stop: 11/10/20 16:29 Last Admin: 10/13/20 08:32 Dose: Not Given Documented by: Lisinopril (Lisinopril 2.5 Mg Tab) 2.5 mg PO DAILY [facility] Stop: 11/10/20 08:59 Last Admin: 10/13/20 08:29 Dose: 2.5 mg Documented by: Metoprolol Succinate (Metoprolol Succ 50mg Ext Rel Tab) 50 mg PO QAM [facility] Stop: 11/12/20 08:59 Last Admin: 10/13/20 08:30 Dose: 50 mg Documented by: Miscellaneous (Carbohydrates For Hypoglycemia ) 15 - 30 gm PO UD PRN PRN Reason: Hypoglycemia Treatment Stop: 11/10/20 14:44 Ondansetron HCl (Ondansetron Inj 2 Mg/Ml 2 Ml Vial) 4 mg IV Q6H PRN PRN Reason: Nausea Stop: 11/09/20 19:52 Last Admin: 10/12/20 20:01 Dose: 4 mg Documented by: Pantoprazole Sodium (Pantoprazole 40 Mg Tab) 40 mg PO BID [facility]; Protocol Stop: 11/10/20 08:59 Last Admin: 10/13/20 08:30 Dose: 40 mg Documented by: Polyethylene Glycol (Polyethylene (Miralax) 17 Gm Pack) 17 gm PO DAILY PRN PRN Reason: Constipation Stop: 11/09/20 19:52 Potassium Chloride (Potassium Chloride Pwd 20 Meq Pack) 20 meq PO DAILY [facility] Stop: 11/10/20 08:59 Last Admin: 10/13/20 09:33 Dose: 20 meq Documented by: Umeclidinium [place] (Umeclidinium [place] 62.5mcg/Blister 7 Puffs/Inhaler) 1 puffs INH DAILY [facility] Stop: 11/10/20 08:59 Last Admin: 10/13/20 09:33 Dose: 1 puffs Documented by:
--- NOTE | 2020-10-13 11:24 | Hospitalist Progress Note ---
Date of Service October 13, 2020 Assessment & Plan (1) Atrial fibrillation with RVR: This is a 64-year-old male with PMH of CHF, atrial fibrillation on Eliquis, type 2 diabetes, chronic respiratory failure with hypoxia and hypercapnia on 2 L nasal cannula oxygen, asthma, sleep apnea, hypertension and other medical problems listed below who was sent over from [facility] cardiology for A. fib with RVR and decompensated heart failure. Multiple admissions at [facility] for A. fib with RVR Home regimen includes amiodarone and recently increased Toprol 100 mg twice daily Due for AV jeannie ablation with biventricular ICD implant later this week with Dr. Stewart Directed to come to [facility] for admission for improved rate control, diuresis prior to procedure HR initially 170s, now 96 Diltiazem bolus and drip initiated in ED- continued on the floor Continue to monitor closely Cardiology consulted -appreciate input Remains medically stable with controlled heart rate around 90s No chest pain and/or palpitation He has been feeling much better since admission and denies any shortness of breath at rest or with minimal exertion S/P : Operation Date: 10/12/20 11:30 BiV ICD Peripheral and coronary sinus venogram Intracardiac EGM HIS bundle recording AVN ablation He will be discharged home this afternoon (2) Acute decompensated heart failure: Recurrent admissions for decompensated heart failure Most recent TTE from 09/13/2020 with EF of 30 with diffuse hypokinesis. Septal motion is abnormal consistent with LBBB. Moderate pulmonary hypertension is present Torsemide increased during previous hospital admission to 40 mg daily - holding currently Given 40mg IV Lasix in ED, valdes catheter placed. Strict I&Os Plan for Lasix 40mg BID17 No symptoms of fluid overload We will continue current medications Denies any increasing shortness of breath (3) HTN (hypertension): Continue Toprol, lisinopril with hold parameters Blood pressure is controlled (4) HLD (hyperlipidemia): Continue statin (5) LIZA (obstructive sleep apnea): Bipap HS (6) LBBB (left bundle branch block): Chronic (7) Noncompliance: History of non-compliance with medications DVT Ppx: Eliquis Code status: FULL PCP: Raghu Dispo: Admitted to PCU. . (8) Acute systolic heart failure: Admission and Anticipated Discharge Date Admission Date: October 10, 2020 Subjective 10/11/2020 The patient was seen and examined in telemetry unit He was transferred from [facility] hotbed operator for possible ICD placement He has been stable denies any symptoms this morning 10/12/2020 The patient was seen and examined in telemetry unit He is a status post ICD placement and also ablation Has been complaining of chest pain at the site of surgery and nausea He wants to go home before Saturday10/13/2020 The patient was seen and examined in telemetry unit Is a status post ICD placement and AV jeannie ablation on 10/12/2020 He has been feeling much better and denies any symptoms Will be discharged home this afternoon Review of Systems Review of Systems: All systems reviewed and are unremarkable except as noted below Cardiovascular: + chest pain (At ICD implantation site); no palpitations Physical Exam Physical Exam: Lying in bed comfortably Constitutional: well developed, well nourished and + obese; not ill appearing Eyes: PERRL, conjunctivae normal, anicteric sclerae ENMT: external ear and nose normal, oropharynx normal Neck: trachea midline, no thyromegaly Respiratory: no respiratory distress Auscultation: lungs clear to auscultation bilaterally and + diminished lung sounds Cardiovascular: Rate/Rhythm: regular rate and regular rhythm Heart Sounds: no murmur Extremities: + edema (1+ edema bilaterally and seems to be chronic) Gastrointestinal (Abdomen): Inspection/Auscultation: + abdomen distended and normal bowel sounds Percussion/Palpation: abdomen soft; abdomen nontender Musculoskeletal: No acute arthritis in any joint Neurologic: Alert, awake and oriented x3 Lymphatic: no cervical or axillary lymphadenopathy Results & Data Results & Data ([facility]) Vital Signs (Past 12 Hours) Vital Signs Temp Pulse Pulse Resp BP Pulse Ox 10/13/20 08:00 89 10/13/20 07:45 36.8 C 89 24 113/78 91 10/13/20 04:00 36.9 C 90 18 129/98 93 10/13/20 03:42 89 26 H 92 10/13/20 00:27 90 28 H 91 10/13/20 00:18 90 10/12/20 23:55 37.0 C 89 19 128/91 93 Laboratory Results Short CBC 10/13/20 Range/Units 05:45 WBC 6.67 (4.8-10.8) K/uL Hgb 13.1 L (14.0-18.0) g/dL Hct 41.6 L (42-52) % Plt Count 201 (130-400) K/uL [facility] 10/13/20 05:45 Sodium 138 Potassium 3.5 Chloride 102 Carbon Dioxide 31 BUN 9 Creatinine 0.87 Glucose 96 Calcium 8.1 L Medications Administered Current Inpatient Medications Acetaminophen (Acetaminophen 325 Mg Tab) 650 mg PO Q4H PRN PRN Reason: Pain or Fever Stop: 11/09/20 19:52 Last Admin: 10/12/20 20:00 Dose: 650 mg Documented by: Albuterol (Albuterol Hfa 8 Gm Inhaler) 1 puffs INH Q6R PRN PRN Reason: Shortness Of Breath Stop: 11/09/20 22:16 Apixaban (Apixaban 5 Mg Tablet) 5 mg PO BID DARCI Stop: 11/12/20 08:59 Last Admin: 10/13/20 08:31 Dose: 5 mg Documented by: Aspirin (Aspirin 81 Mg Ectab) 81 mg PO DAILY DARCI Stop: 11/10/20 08:59 Last Admin: 10/13/20 08:30 Dose: 81 mg Documented by: Atorvastatin Calcium (Atorvastatin 40 Mg Tab) 40 mg PO DAILY DARCI Stop: 11/10/20 08:59 Last Admin: 10/13/20 08:30 Dose: 40 mg Documented by: Cyanocobalamin (Cyanocobalamin 500 Mcg Tablet (Vitamin B-12)) 500 mcg PO DAILY DARCI Stop: 11/10/20 08:59 Last Admin: 10/13/20 08:30 Dose: 500 mcg Documented by: Dextrose (Dextrose 50% 50 Ml Syringe) 25 - 50 ml IV UD PRN; Protocol PRN Reason: Hypoglycemia Protocol Stop: 11/10/20 14:44 Famotidine (Famotidine 40 Mg Tablet) 40 mg PO DAILY DARCI Stop: 11/10/20 08:59 Last Admin: 10/13/20 08:30 Dose: 40 mg Documented by: Fluticasone/Vilanterol (Fluticasone/Vilanterol 200/25mcg 14 Puffs/Inhaler) 1 puffs INH DAILY DARCI Stop: 11/10/20 08:59 Last Admin: 10/13/20 09:33 Dose: 1 puffs Documented by: Glucagon (Glucagon For Inj 1 Mg Vial) 1 mg IM UD PRN; Protocol PRN Reason: Hypoglycemia Protocol Stop: 11/10/20 14:44 Glucose (Glucose 40% Gel 15 Gm Tube) 15 - 30 gm PO UD PRN; Protocol PRN Reason: Hypoglycemia Protocol Stop: 11/10/20 14:44 Glucose (Glucose 10 Tabs/Tube) 4 - 8 tabs PO UD PRN; Protocol PRN Reason: Hypoglycemia Protocol Stop: 11/10/20 14:44 Furosemide 40 mg/ Syringe 4 mls @ 4 mls/min IV BID17 [facility] Stop: 11/10/20 08:59 Last Admin: 10/13/20 09:26 Dose: 4 mls/min Documented by: Cefazolin Sodium 3,000 mg/ (Dextrose) 72.5 mls @ 145 mls/hr IV Q8H [facility] Stop: 10/13/20 19:59 Last Infusion: 10/13/20 04:26 Dose: Infused Documented by: Insulin Aspart (Insulin Aspart 100 Units/Ml 3 Ml Pen) 0 units SC ACHS [facility] Stop: 11/10/20 16:29 Last Admin: 10/13/20 08:32 Dose: Not Given Documented by: Lisinopril (Lisinopril 2.5 Mg Tab) 2.5 mg PO DAILY [facility] Stop: 11/10/20 08:59 Last Admin: 10/13/20 08:29 Dose: 2.5 mg Documented by: Metoprolol Succinate (Metoprolol Succ 50mg Ext Rel Tab) 50 mg PO QAM [facility] Stop: 11/12/20 08:59 Last Admin: 10/13/20 08:30 Dose: 50 mg Documented by: Miscellaneous (Carbohydrates For Hypoglycemia ) 15 - 30 gm PO UD PRN PRN Reason: Hypoglycemia Treatment Stop: 11/10/20 14:44 Ondansetron HCl (Ondansetron Inj 2 Mg/Ml 2 Ml Vial) 4 mg IV Q6H PRN PRN Reason: Nausea Stop: 11/09/20 19:52 Last Admin: 10/12/20 20:01 Dose: 4 mg Documented by: Pantoprazole Sodium (Pantoprazole 40 Mg Tab) 40 mg PO BID [facility]; Protocol Stop: 11/10/20 08:59 Last Admin: 10/13/20 08:30 Dose: 40 mg Documented by: Polyethylene Glycol (Polyethylene (Miralax) 17 Gm Pack) 17 gm PO DAILY PRN PRN Reason: Constipation Stop: 11/09/20 19:52 Potassium Chloride (Potassium Chloride Pwd 20 Meq Pack) 20 meq PO DAILY DARCI Stop: 11/10/20 08:59 Last Admin: 10/13/20 09:33 Dose: 20 meq Documented by: Umeclidinium [place]let (Umeclidinium [place] 62.5mcg/Blister 7 Puffs/Inhaler) 1 puffs INH DAILY DARCI Stop: 11/10/20 08:59 Last Admin: 10/13/20 09:33 Dose: 1 puffs Documented by:
--- NOTE | 2020-10-14 05:52 | Electrocardiogram Report ---
Test Reason : Blood Pressure : / mmHG Vent. Rate : 097 BPM Atrial Rate : 131 BPM P-R Int : 000 ms QRS Dur : 168 ms QT Int : 446 ms P-R-T Axes : 000 003 170 degrees QTc Int : 566 ms Atrial fibrillation Left bundle branch block Abnormal ECG When compared with ECG of 11-OCT-2020 05:46, No significant change Confirmed by Jamaal Maier ([id number]) on 10/14/2020 5:52:05 AM Referred By: Blanca Fernandez Confirmed By:Jamaal Maier
--- NOTE | 2020-10-14 06:26 | Electrocardiogram Report ---
Test Reason : Blood Pressure : / mmHG Vent. Rate : 089 BPM Atrial Rate : 102 BPM P-R Int : 000 ms QRS Dur : 118 ms QT Int : 454 ms P-R-T Axes : 000 -29 073 degrees QTc Int : 552 ms Ventricular-paced rhythm Abnormal ECG When compared with ECG of 12-OCT-2020 06:53, Ventricular pacing is now present Confirmed by Jamaal Maier ([id number]) on 10/14/2020 6:26:37 AM Referred By: Blanca Fernandez Confirmed By:Jamaal Maier
--- NOTE | 2020-10-14 08:27 | Discharge Summary ---
Date of Service October 14, 2020 Admission HPI Per Admitting Provider This is a 64-year-old male with PMH of CHF, atrial fibrillation on Eliquis, chronic respiratory failure with hypoxia and hypercapnia on 2 L nasal cannula oxygen, asthma, sleep apnea, hypertension and other medical problems listed below who was sent over from [facility] cardiology for A. fib with RVR and decompensated heart failure. Patient was recently admitted at [facility] from 09/30-10/05 for acute on chronic heart failure and A. fib with RVR. Had torsemide increased to 40 mg daily and Toprol increased to 100 mg twice daily. Was cardioverted to normal sinus rhythm on September 09. Is due for AV jeannie ablation with biventricular ICD implant later this week with Dr. Stewart. In clinic follow-up today, patient noted to be in A. fib with RVR as well as a 10 pound weight gain since last seen. Had been mowing the lawn earlier that day and noticed some palpitations. Otherwise feels that he is at his baseline. Denies chest pain, SOB, orthopnea. States he has been taking medications as prescribed but is unable to name them. Fills his medication box with help of sister and "takes what ever is in there". History of noncompliance. Denies any fever, chills, headache, lightheadedness, nausea, vomiting, abdominal pain, dysuria, diarrhea or constipation. Admission Exam Per Admitting Provider Physical Exam: General Appearance: WD/WN, vitals as above, NAD, sitting up in bed, conversational dyspnea Head: normocephalic, atraumatic Eyes: normal inspection, PERRL, conjunctivae normal, anicteric sclerae ENT: external ear and nose normal, oropharynx normal Neck: normal visual inspection, trachea midline, no thyromegaly Respiratory: increased respiratory effort, lungs clear to auscultation, no wheeze, rales, rhonchi. No accessory muscle use Cardiovascular: irregular rate & rhythm, no murmur appreciated, normal peripheral pulses, 2+ BLE edema. Vessels: + JVD Chest: normal inspection of chest Abdomen/GI: normal bowel sounds, soft, nontender, no hepatosplenomegaly Extremities/Musculoskeletal: no cyanosis or clubbing, extremities motor strength 5/5 Neurologic: PERRL, EOMI, accommodation nl, no face palsy, no dysarthria, CN's II-XI intact bilaterally and moves all extremities Psychiatric: A+Ox3, euthymic affect Skin: no rashes, normal color, warm/dry Principal Diagnosis Atrial fibrillation with RVR, status post AV jeannie ablation and ICD placement, acute systolic heart failure Discharge Exam Constitutional well developed, well nourished and + obese; not ill appearing Eyes PERRL, conjunctivae normal, anicteric sclerae ENMT external ear and nose normal, oropharynx normal Neck trachea midline, no thyromegaly Respiratory no respiratory distress Auscultation: lungs clear to auscultation bilaterally and + diminished lung sounds Cardiovascular Rate/Rhythm: regular rate and regular rhythm Heart Sounds: no murmur Extremities: + edema (1+ edema bilaterally and seems to be chronic) Gastrointestinal (Abdomen) Inspection/Auscultation: + abdomen distended and normal bowel sounds Percussion/Palpation: abdomen soft; abdomen nontender Lymphatic no cervical or axillary lymphadenopathy Discharge Data Allergies Allergy/AdvReac Type Severity Reaction Status Date / Time codeine Allergy Hives Unverified 10/10/20 17:00 TEA Allergy Anaphylaxis Uncoded 10/10/20 17:01 TIDE LAUNDRY DETERGENT Allergy Rash Uncoded 10/10/20 17:02 Consultations 10/10/20 16:44 ED Decision to Admit Stat 10/10/20 19:53 Consult Cardiology Routine Procedures Performed Operation Date: 10/12/20 11:30 Actual Procedures p AV Node Ablation - Heidi Stewart DO s Bundle of his Recording - Heidi Stewart DO s Venogram, Unilateral - Heidi Stewart DO s ICD Insertion Single or Dual - Heidi Stewart DO s Lead LV (No Priopr Implant) - Heidi Stewart DO s Lead Reposition RA/RV - DO noé Murdock ICD Gen Change Multiple - Heidi Stewart DO Ordered Studies 10/12/20 07:30 EP Lab Images for PACS ONCE Hospital Course (1) Atrial fibrillation with RVR: This is a 64-year-old male with PMH of CHF, atrial fibrillation on Eliquis, type 2 diabetes, chronic respiratory failure with hypoxia and hypercapnia on 2 L nasal cannula oxygen, asthma, sleep apnea, hypertension and other medical problems listed below who was sent over from [facility] cardiology for A. fib with RVR and decompensated heart failure. Multiple admissions at [facility] for A. fib with RVR Home regimen includes amiodarone and recently increased Toprol 100 mg twice daily Due for AV jeannie ablation with biventricular ICD implant later this week with Dr. Stewart Directed to come to [facility] for admission for improved rate control, diuresis prior to procedure HR initially 170s, now 96 Diltiazem bolus and drip initiated in ED- continued on the floor Continue to monitor closely Cardiology consulted -appreciate input Remains medically stable with controlled heart rate around 90s No chest pain and/or palpitation He has been feeling much better since admission and denies any shortness of breath at rest or with minimal exertion S/P : Operation Date: 10/12/20 11:30 BiV ICD Peripheral and coronary sinus venogram Intracardiac EGM HIS bundle recording AVN ablation He will be discharged home this afternoon (2) Acute decompensated heart failure: Recurrent admissions for decompensated heart failure Most recent TTE from 09/13/2020 with EF of 30 with diffuse hypokinesis. Septal motion is abnormal consistent with LBBB. Moderate pulmonary hypertension is present Torsemide increased during previous hospital admission to 40 mg daily - holding currently Given 40mg IV Lasix in ED, valdes catheter placed. Strict I&Os Plan for Lasix 40mg BID17 No symptoms of fluid overload We will continue current medications Denies any increasing shortness of breath (3) HTN (hypertension): Continue Toprol, lisinopril with hold parameters Blood pressure is controlled (4) HLD (hyperlipidemia): Continue statin (5) LIZA (obstructive sleep apnea): Bipap HS (6) LBBB (left bundle branch block): Chronic (7) Noncompliance: History of non-compliance with medications DVT Ppx: Eliquis Code status: FULL PCP: Raghu Dispo: Admitted to PCU. . (8) Acute systolic heart failure: Total Time Total Time Spent Total Time Spent (In Minutes): 35 minutes Total Time Includes: Examination of the Patient, Discharge Planning, Medication Reconciliation and Communication With Other Providers Discharge Plan Discharge Items Patient Disposition: Home - Self-Care Reason For Visit: A-fib with RVR, CHF Discharge Diagnosis: Atrial fibrillation with RVR, status post AV jeannie ablation and ICD placement, acute systolic heart failure Condition on Discharge: Good Activity: As commented below Activity Comment: Do not raise your left elbow over your left shoulder for 1 month Lifting: No more than 10 pounds Lifting Comment: Do not lift more than 10 pounds with the left arm for 2 weeks Bathing: Keep incision dry Bathing Comment: keep dressing on and dry-no shower; until next week wound check Sexual Activity: After two weeks Driving/Machine Use: Resume 1 day after discharge Non-emergency contact: [employer] Specialist Call non-emergency contact if: you have any medication questions Follow-up/Referrals: Kelvin Krishnamurthy MD [Primary Care Provider] - (Date & Time 10/17/2020 10:40 AM Provider Kelvin Krishnamurthy MD [facility] ) Diet: Carb Consistent or DM2 and Heart Healthy Addtl Attending Provider Instructions: Device and wound check next week at [place] cardiology office DO NOT GET THE DRESSING WET!!! Decrease Metoprolol to 50mg daily Can use 2 to 4 L of oxygen via nasal cannula to maintain saturation more than 89% Pending Studies at Discharge: No Stand-Alone Forms: My [facility] [employer] Telegram, Smoking Cessation Medications and DC Order Prescriptions: New metoprolol succinate 50 mg Tablet Extended Release 24 Hr 50 mg PO QAM Qty: 30 RF: 0 Continued torsemide 20 mg tablet 40 mg PO DAILY RF: 0 lisinopril 2.5 mg tablet 2.5 mg PO DAILY RF: 0 Eliquis 5 mg tablet 5 mg PO BID RF: 0 Incruse Ellipta 62.5 mcg/actuation blister with device 1 inh INHALATION DAILY RF: 0 atorvastatin 40 mg tablet 40 mg PO DAILY RF: 0 albuterol sulfate 90 mcg/actuation HFA aerosol inhaler 1 inh INHALATION Q6H PRN (Reason: Shortness Of Breath) RF: 0 famotidine 40 mg Tablet 40 mg PO DAILY RF: 0 potassium chloride [Klor-Con] 20 mEq Packet 20 meq PO DAILY RF: 0 cyanocobalamin (vitamin B-12) 500 mcg Tablet 500 mcg PO DAILY RF: 0 omeprazole 20 mg Capsule,Delayed Release(Dr/Ec) 20 mg PO BID RF: 0 aspirin 81 mg Tablet 81 mg PO DAILY RF: 0 Discontinued metoprolol succinate 100 mg tablet extended release 24 hr 100 mg PO BID RF: 0 amiodarone 200 mg tablet 200 mg PO DAILY RF: 0 Discharge Orders: Discharge Order (Routine); Ordered 10/13/20 Ordered By: Andres Cartagena/Other Patient Handouts: Living with a Pacemaker, Discharge Instructions for ..., If Oxygen Is Prescribed Admission Data Admit Date/Time: 10/10/20 17:26 Attending Provider: Andres Hawkins Admit Provider: Mayra Sosa Primary Care Provider: Kelvin Krishnamurthy I. Other Providers: Lamont Blanchard ; Mayra Sosa Other Interventions: Discharge Summary Assessment (RN) Last Done: 10/13/20 15:10
--- NOTE | 2020-10-15 14:50 | Operative Report (OR) ---
DATE OF OPERATION: 10/12/2020 PREOPERATIVE DIAGNOSES: Persistent atrial fibrillation with rapid ventricular response, acute recurrent heart failure with reduced ejection fraction, [place] Heart [employer] class III, nonischemic cardiomyopathy, and left bundle branch block. POSTOPERATIVE DIAGNOSES: Persistent atrial fibrillation with rapid ventricular response, acute recurrent heart failure with reduced ejection fraction, [place] Heart Association class III, nonischemic cardiomyopathy, left bundle branch block, and complete heart block. PROCEDURE: Biventricular rate responsive implantable cardiac defibrillator under fluoroscopic guidance along with peripheral and coronary sinus venogram as well as intracardiac electrogram His bundle recordings of the His bundle, AV jeannie ablation, ultrasound guidance venous access. SURGEON: Heidi Stewart DO. ASSISTANTS: None. ANESTHESIA: General anesthetic care administered via anesthesiology. Start time for anesthesia was 11:25. Start time for the procedure 12:10, end time 1624. In addition to the general anesthesia, he got 140 mg of succinate, 150 mcg of fentanyl, 20 mg of etomidate, and additional medicines, 40 mg of Lasix. INTRAVENOUS CONTRAST: 30 mL. ANTIBIOTICS: 3 grams of Ancef. BLOOD LOSS: 30 mL. URINE OUTPUT: 1800 mL. COMPLICATIONS: None. CONDITION: Stable. SPECIMENS: None. FINDINGS: See below. DRAINS: None. INDICATIONS: This is a 64-year-old gentleman who has a recently diagnosed persistent atrial fibrillation with rapid ventricular response, on high dose beta blockers and Eliquis. Did undergo a cardioversion after he was loaded on amiodarone, but this only helped for a few days. Nonischemic cardiomyopathy, ejection fraction 30%, left bundle branch block, recurrent acute hospitalizations for heart failure secondary to reduced ejection fraction and tachycardia, diastolic dysfunction. Multiple hospitalizations in the past month, [place] Heart Association class III, noncompliance, obesity, obstructive sleep apnea, noncompliance with CPAP, pulmonary hypertension and hyperlipidemia. Due to the recurrent heart failure admissions due to AFib with rapid ventricular response, he was recommended an AV jeannie ablation with getting a BiV ICD prior to that. CONSENT: Consent was obtained prior to the patient going into the electrophysiology lab. The patient was informed of the risks, benefits and alternatives to the procedure. Risks include but not limited to sudden cardiac , cardiac arrhythmia, cerebrovascular accident, myocardial infarction, injury to the blood vessels, chamber of the heart or the lung, bleeding, and infection. The patient understood these risks and agreed to the procedure as planned. Informed consent was obtained. DESCRIPTION OF THE PROCEDURE: The patient was brought into the electrophysiology lab in a fasting state. He was connected to continuous patient monitor. Timeout was performed to ensure patient identity and procedure correctly. He received prophylactic antibiotics prior to incision. General anesthesia was given throughout the procedure for patient's comfort level. Aneta precautions were maintained throughout procedure. 10 mL of 1% lidocaine, bupivacaine mixture were given in the left deltopectoral groove. Incision was made in the left deltopectoral groove. Blunt dissection was performed down and a defibrillator pocket was created using blunt dissection over the pectoralis muscle within the pectoralis fascia. Then a peripheral venogram was performed to identify the axillary vein. Venous axillary access was obtained on 2 separate needle sticks without any problems. Guidewire was inserted without any resistance. On the more lateral stick, a 7-[place] sheath was inserted over the guidewire, the dilator was removed and a second guidewire was inserted through the sheath to allow for retained venous access. Sheath was removed. Then, a 9.5-[place] sheath was inserted over the guidewire without any resistance. The guidewire and dilator were removed. The right ventricular defibrillator lead was advanced into right ventricle, positioned in the right ventricular apex under fluoroscopic guidance. There was adequate pacing and sensing thresholds and no diaphragmatic stimulation in high output pacing. The 9.5-[place] sheath was peeled away and the lead was fixated to pectoralis muscle using 0 silk suture. The 7-[place] sheath was advanced over the retained guidewire in that lateral stick. The guidewire and dilator were removed. The right atrial lead was then advanced into right atrium and positioned in the right atrial appendage under fluoroscopic guidance. There was adequate sensing of the fib waves noted and the 7-[place] sheath was peeled away and the lead was fixated to pectoralis muscle using 0 silk suture. Through the more medial stick, a 9.5-[place] sheath was inserted. The guidewire and dilator were removed. Then, an MPX sheath was advanced over a Glidewire. The Glidewire and dilator were removed. Then, the coronary sinus was cannulated using the EP diagnostic catheter and a coronary sinus venogram was performed, but there were really no branches amendable, so we set up to do a left bundle. The MPX was removed and the His C315 sheath was advanced into the right ventricle, and the guidewire and dilator were removed. Intracardiac mapping was performed of the His bundle. Once we found this, we marked where this was on our fluoroscopy screens with the camera in GUIDRY 30 and came down about 2 cm from that in the line that would extend out to the apex of the right ventricle, to where we would want to position our sheath. Then the His C315 sheath was positioned down in this region, we had good sensing and a nice W pattern in our V1 QRS complex, so I started screwing it in; however, when I slit the sheath, the lead pulled out, so we got a new sheath and came back in and repositioned the lead. Then, screwing clockwise into the septum pausing to see how our QRS complex changed, we had a nice R prime and we were well into the septum by our venogram. The His C315 sheath was then slit under fluoroscopic guidance. Then the 9.5-[place] sheath was peeled away and lead was fixated to pectoralis muscle using 0 silk suture. The pocket was flushed with copious amounts of bacitracin saline wash and inspected for hemostasis. Pulse generator was attached to the leads making sure the pins were in appropriate position, passed set screws and set screws were all tightened. Pulse generator was placed in antibiotic pouch followed then by being placed in the pocket and incision was closed in a 3-layer fashion with 2-0 Vicryl interrupted suture followed by 3-0 Vicryl interrupted suture, followed by a 4-0 Monocryl running stitch and Dermabond was applied followed by Telfa and micropore dressing. We then started to set up for the AV jeannie ablation. We were prepping the bilateral groins when we noticed on the ICD device, there was noise being observed, so we reprepped the left infraclavicular space, I reopened the pocket and was able to reproduce the noise when the lead was attached to the device. I disconnected the RV lead from the device and tried to reproduce the noise when the RV lead was not attached to the device but attached the alligators and I was not able to, so we dropped the new device only then to find out that the noise was reproducible in the new device. So then I opted to switch out the RV lead. I got venous access again and a 9.5-[place] sheath was inserted without any resistance, guidewire and dilator were removed, and the right ventricular initial lead was easily extracted with gentle retraction after I removed the suture sleeves and did retract the screw, then a new right ventricular defibrillator lead was advanced into right ventricle, positioned in the right ventricular apex under fluoroscopic guidance. There was adequate pacing and sensing thresholds and no diaphragmatic stimulation with high output pacing. The lead was then attached to the new pulse generator making sure the pins were in appropriate position, passed set screws and set screws were tightened. All the other leads were attached as well. Then we ensured there was no noise. The pocket was flushed again with vancomycin wash and the defibrillator was placed in antibiotic pouch followed then by being placed in the pocket, making sure the leads were lying flat beneath the device. The incision was then again closed in a 3-layer fashion with 2-0 Vicryl interrupted suture followed by 3-0 Vicryl interrupted suture, followed by 4-0 Monocryl running stitch and Dermabond was applied with Telfa and micropore dressing. Then I came back down to the right femoral groin, gave 5 mL of 1% lidocaine. Under ultrasound guidance, got venous access of the right femoral vein using the modified Seldinger technique and a short 8-[place] sheath was advanced and the ablation catheter FJ 8 mm non-abad was advanced and the HV was intracardiac mapped and we came on ablation at 70 scott for 1 minute burn x3, had successful complete heart block right away. The ablation catheter was then removed from the body and the sheath was pulled using manual compression to establish hemostasis. EQUIPMENT: 1. The device is a [employer] MRI LUMBER ESTIMATOR-D SureScan [id number], serial number [id number]. 2. Tyrx pouch. We did use a new one. The reference [id number], lot number [id number]. 3. Right atrial lead Medtronic 5076-52 cm, serial number [id number]. 4. The removed malfunctioned right ventricular lead was a Medtronic 6935M-62 cm, serial number [id number]. 5. The new appropriately functioning right ventricular lead is a Medtronic 6935M-62 cm, serial number [id number]. 6. Left bundle lead is a Medtronic 3830-69 cm, serial number [id number]. 7. The unused Tyrx pouch because when I reopened the pocket, I did not reuse it, was reference [id number], lot number [id number]. INTRAOPERATIVE TESTIN. Intracardiac electrogram mapping during the left bundle, the HV was found to be 95 milliseconds. 2. During the AV jeannie ablation, I got the HV to be 63 milliseconds. 3. Right atrial lead: Fib waves are 1.3 millivolts, impedance 703 ohms. 4. Defibrillator lead: R waves 12.2 millivolts, impedance 952 ohms, threshold 0.6 volts at 0.5 milliseconds. 5. Left bundle lead: R waves 15 millivolts, impedance 622 ohms, threshold 0.9 volts at 0.5 milliseconds. FINAL MEASUREMENTS THROUGH THE DEVICE: 1. Fib waves 2.3 millivolts, impedance 700 ohms. 2. Right ventricular lead: R waves 16 millivolts, impedance 532 ohms, threshold 0.5 volts at 0.4 milliseconds. 3. Left bundle lead: Impedance 874 ohms, threshold 0.75 volts at 0.4 milliseconds. FINAL PARAMETERS: VVI 90, right ventricular amplitude 35 volts, pulse width 0.4 milliseconds, sensitivity 0.3 millivolts. Left ventricular amplitude 3 volts. VT monitor zone at 150 beats per minute for 32 detection intervals, VT zone at 171 beats per minute for 20 detection intervals, VF zone at 200 beats per minute for 30/40 detection intervals. IMPRESSION: Successful biventricular rate responsive implantable cardiac defibrillator under fluoroscopic guidance along with a peripheral venogram and coronary sinus venogram as well as intracardiac electrogram His bundle recording and an atrioventricular jeannie ablation and ultrasound guidance femoral venous access secondary to atrial fibrillation with rapid ventricular response with recurrent heart failure admissions. PLAN: Monitor the patient overnight. Ancef 3 grams every 8 hours for 24 hours. He is to keep the dressing on and dry until his wound check next week. He is not to do any heavy lifting or squatting for 1 week. He is not to lift the left elbow or left shoulder for 1 month. He cannot lift more than 10 pounds with the left arm for 2 weeks. He can reduce his metoprolol down to 50 mg and we will follow him up in our office. I attest to the content of the Intraoperative Record and any orders documented therein. Any exceptions are noted below. [facility]
== END 2020-10-13 18:25 | disposition home or self-care (01) | DRG 226 ==
LOC: ED 15:23 → SUATTDRO 17:26 → 2E 17:26
PROC: EPB.ICD (2020-10-12 11:30)